=== PATIENT | female | born 1990 | race Caucasian/White ===

== ENCOUNTER 2021-04-26 09:54 | Emergency (ER) | payer OTHER, SELFPAY ==
--- NOTE | ~2021-04-26 | XR_ITS ---
EXAMINATION: XR chest 2V DATE: 04/26/2021 10:10 INDICATION: Centralized chest pain TECHNIQUE: PA and lateral views of the chest are obtained. COMPARISON: None available FINDINGS: The lungs are free of acute opacities. There is no pleural effusion or pneumothorax. The ca rdiomediastinal silhouette is normal. The visualized bones and soft tissues are unremarkable. IMPRESSION: 1. No acute cardiopulmonary abnormality. Reviewed, dictated and finalized at location A.
--- NOTE | ~2021-04-26 | CT_ITS ---
EXAMINATION: CT abdomen pelvis w con INDICATION: Leukocytosis TECHNIQUE: Computed tomographic images of the abdomen and pelvis were obtained after the administrati on of 100 cc of Omnipaque 350 intravenous contrast. The dose-length product (DLP) was 511.11 mGy-cm. Automated exposure control and iterative reconstruction technique were employed. COMPARISON: None available FINDINGS: Minimal dependent atelectasis is present in the lung bases. The heart size is normal. The l iver, spleen, pancreas, gallbladder, and adrenal glands are normal. There is a [address] one of the right kidney. The left kidney is unremarkable. There is moderate wall thickening in the tom dy and antrum of the stomach. No pathologically enlarged abdominal or pelvic lymph nodes are identifi ed. There is no free intraperitoneal gas or evidence of bowel obstruction. There is a fat-containing umbilical hernia. IMPRESSION: 1. Wall thickening in the body and the antrum of the stomach which may reflect gastritis. Reviewed, dictated and finalized at location A.
[2021-04-26 09:55] VITALS: BP 126/64; PULSE 95; RESP 18; TEMP 36.5; O2SAT 97
--- NOTE | 2021-04-26 09:59 | ECG_ITS ---
Measurements Intervals Nixon Rate: 60 P: 37 GA: 120 QRS: 61 QRSD: 88 T: 50 QT: 405 QTc: 408 Interpretive Statements SINUS RHYTHM WITH SINUS ARRHYTHMIA BASELINE ARTIFACT- I, II, AVR, AVL NORMAL ECG Electronically Signed On 04-26-2021 10:35:47 CDT by Soto Mg D.O.
[2021-04-26 10:33] LABS: Basophils Absolute Auto 0.1 K/mm3 (0.0-0.1); Basophils Percent Auto 0.8 % (0.2-1.2); Eosinophils Absolute Auto 0.4 K/mm3 (0-0.3); Eosinophils Percent Auto 2.2 % (0-4.4); Hematocrit 35.6 % (37.0-47.0); Hemoglobin 11.6 g/dL (12.0-15.0); Immature Granulocyte Absolute 0.06 K/mm3 (0.00-0.031); Immature Granulocyte Percent A 0.3 % (0-0.5); Lymphocytes Absolute Auto 3.46 K/mm3 (0.9-3.2); Lymphocytes Percent Auto 19.7 % (18.3-44.2); Mean Corpuscular HGB Conc 32.6 g/dl (32-36); Mean Corpuscular Hemoglobin 28.2 pg (26-34); Mean Corpuscular Volume 86.6 fl (80-100); Mean Platelet Volume 10.7 fl (7.4-10.4); Monocytes Absolute Auto 2.1 K/mm3 (0.1-0.6); Monocytes Percent Auto 11.9 % (2.6-8.5); Neutrophils Absolute Auto 11.5 K/mm3 (1.3-6.7); Neutrophils Percent Auto 65.1 % (45.5-73.1); Platelet Count Result 278 k/mm3 (150-375); Red Blood Count 4.11 M/mm3 (4.2-5.4); Red Cell Distribution Width 15.1 % (11.5-14.5); White Blood Count 17.6 K/mm3 (4.5-10.0)
[2021-04-26 10:45] LABS: Anion Gap 7 mmol/L (8-16); Blood Urea Nitrogen 9 mg/dL (7-17); Calcium 9.4 mg/dL (8.4-10.2); Carbon Dioxide 25 mmol/L (22-30); Chloride 110 mmol/L (98-107); Estimated CRCL calculation 108 ml/min; Estimated Glomerular Filt Rate > 60; Glucose 106 mg/dL (65-110); Potassium 3.8 mmol/L (3.4-5.0); Sodium 142 mmol/L (137-145)
[2021-04-26 10:52] LABS: Prothrombin Time 13.1 Seconds (11.1-14.7)
[2021-04-26 10:53] LABS: Partial Thromboplastin Time 30.9 SECONDS (22.3-36.8)
[2021-04-26 10:55] LABS: Troponin I < 0.012 ng/mL (0.000-0.034)
[2021-04-26] MEDS: ONDANSETRON INJ 4 MG/2 ML VIAL IV PUSH (12:00)
[2021-04-26] MEDS: BELLADONNA ALK/PHENOB ELIX 10 ML, MAG HYDROX/ALUMINUM HYD/SIMETH 30 ML, LIDOCAINE HCL 2... PO (12:00)
[2021-04-26] MEDS: SODIUM CHLORIDE 0.9% IV 1,000 ML 999 ML IV CONT (12:00)
[2021-04-26 12:03] LABS: Add Urine Microscopic? YES; Amorphous Sediment Urine Few; Appearance Urine Cloudy (Clear); Bacteria Urine Trace /hpf; Bilirubin Urine Negative (Negative); Blood Urine Negative (Negative); Color Urine Yellow (Yellow); Glucose Urine UA Negative (Negative); Ketones Urine Negative (Negative); Leukocyte Esterase Ur Negative LEU/UL (Negative); Mucus Urine Few /lpf; Nitrate Urine Negative (Negative); Protein Urine Negative (Negative); Specific Grav Ur 1.025 (1.001-1.035); Squamous Epithelial Cell Urine Few /hpf (Few); Urobilinogen Urine Negative mg/dL (<2.0); WBC Urine 0-3 /hpf
--- NOTE | 2021-04-26 12:05 | ED.CHESTPAIN ---
HPI - Chest Pain General Chief Complaint: Chest Pain Stated Complaint: chest pain Time Seen by Provider: 04/26/21 10:54 Source: patient Mode of arrival: ambulatory Limitations: no limitations History of Present Illness HPI narrative: Patient reports chest pain that radiates from her sternal area outward in every direction over the past few days. Patient states beginning she had body aches and cough. Patient states on Tuesday she had a few episodes of vomiting but has not had any since. Patient reports she feels a tightness and pain in her epigastric area and it feels as if she is full with gas. Patient states she also feels dehydrated. Patient reports she has not been able to eat and drink as much as usual. Related Data Allergies Allergy/AdvReac Type Severity Reaction Status Date / Time No Known Allergies Allergy Unverified 03/25/17 10:58 Review of Systems Review of Systems: CONSTITUTIONAL: Denies fever, chills, or sweats. EYES: Denies visual changes, redness, or discharge. ENT: Denies rhinorrhea, congestion, sore throat, or otalgia. CARDIOVASCULAR: Reports chest pain, denies palpitations or edema. RESPIRATORY: Reports cough denies dyspnea. GASTROINTESTINAL: Reports resolved nausea, vomiting, denies diarrhea. GENITOURINARY: Denies dysuria or hematuria. SKIN: Denies rash or itching. MUSCULOSKELETAL: Denies back pain, joint pain, or myalgia. NEUROLOGIC: Denies headache, numbness, dizziness, or weakness. PSYCHIATRIC: Denies anxiety or depression. Exam Narrative: GENERAL: Well-appearing, well-nourished, and in no acute distress. HEAD: Normocephalic, atraumatic. EYES: PERRLA and EOMI. CHEST: Clear to auscultation. No respiratory distress. No wheezes rales or rhonchi HEART: Regular rate and rhythm. No murmur heard. Normal peripheral pulses. ABDOMEN: Soft, pain with palpation of epigastric area, nondistended, normal active bowel sounds. EXTREMITIES: Normal range of motion. No edema. SKIN: Warm, dry, no rash. NEURO: No focal deficits. Alert and oriented x3. PSYCH: Normal mood and affect. Course Vital Signs Vital signs: Vital Signs Temperature 97.7 F 04/26/21 09:55 Pulse Rate 95 04/26/21 09:55 Respiratory Rate 04/26/21 09:55 Blood Pressure 126/64 04/26/21 09:55 Pulse Oximetry 97 04/26/21 09:55 Temperature 97.7 F 04/26/21 09:55 Pulse Rate 94 04/26/21 12:32 Respiratory Rate 17 04/26/21 12:32 Blood Pressure 121/59 L 04/26/21 12:32 Pulse Oximetry 100 04/26/21 12:32 MDM - Chest Pain MDM Narrative Medical decision making narrative: Patient has elevated white blood cell count. Patient reports that she has some vomiting patient does have pain at the epigastric area. Chest x-ray is clear and urinalysis is negative for signs of infection. CT shows inflammation of the stomach and stomach antrum. Patient will be placed on PPI and instructed to follow-up with primary care and GI specialist. Patient does not have any other emergent findings. Patient has been tested for Covid and has been instructed on how to obtain her information. Patient has been instructed to quarantine as if she is positive while awaiting testing results and while symptomatic. Patient does not have any signs of distress. Patient's vital signs are stable. She is hemodynamically stable and does not show any signs of respiratory distress or sepsis.. Differential Diagnosis Differential diagnosis: Likely fracture of rib, pneumothorax, stable angina, unstable angina pectoris, atypical chest pain, st elevation myocardial infarction, costochondritis, chest pain and biliary colic Lab Data Result diagrams: 04/26/21 10:24 04/26/21 10:24 Labs: Lab Results 04/26/21 04/26/21 04/26/21 Range/Units 10:24 10:24 10:24 WBC 17.6 H (4.5-10.0) K/mm3 RBC 4.11 L (4.2-5.4) M/mm3 Hgb 11.6 L (12.0-15.0) g/dL Hct 35.6 L (37.0-47.0) % MCV 86.6 (80-100) fl MCH 28.2 (26-34) pg
[2021-04-26 12:08] LABS: Lipase 72 U/L (23-300)
[2021-04-26 12:32] VITALS: BP 121/59; PULSE 94; RESP 17; O2SAT 100
[2021-04-26 12:48] LABS: Pregnancy On Board Control Positive; Urine Pregnancy Test Negative
[2021-04-26 13:08] LABS: Troponin I < 0.012 ng/mL (0.000-0.034)
[2021-04-26] MEDS: PANTOPRAZOLE SODIUM IV 40 MG VIAL IV PUSH (13:37)
[2021-04-27 19:01] LABS: SARS-CoV-2 RNA PCR Negative
== END 2021-04-26 14:47 | disposition home or self-care (01) ==
PROVIDERS: Physician Assistant; Emergency Provider Family Medicine; PCP Internal Medicine
DX: K29.70 Gastritis, unspecified, without bleeding (principal); B34.9 Viral infection, unspecified; Z20.822 Contact with and (suspected) exposure to COVID-19
CPT/HCPCS: 36415; 71046; 74177; 80048; 81001; 81025; 83690; 84484; 85025; 85610; 85730; 93005; 96361; 96374; 96375; 99284; A9270; C9113; C9803; J2405; J7030; Q9967; U0003; U0005

== ENCOUNTER 2024-08-31 04:46 | Emergency (ER) | payer SELFPAY ==
[2024-08-31] VITALS (16 sets, daily range): BP systolic 95–122; BP diastolic 62–91; PULSE 91–111; RESP 12–18; TEMP 36.4–37.3; O2SAT 95–100
--- NOTE | ~2024-08-31 | XR_ITS ---
Left ankle Technique: AP, oblique, and lateral views were obtained. Clinical History: Injury Findings: There is a transverse fracture the base the medial malleolus, with displacement by up to ap proximately 1.8 cm. There is a comminuted oblique fracture of the distal fibula, with lateral angulat ion of the distal fracture fragment and probable mild overriding. There is marked widening of the med ial aspect of the ankle mortise. Questionable posterior malleolus fracture. Soft tissues are otherwis e unremarkable. Impression: Displaced fractures of the medial and lateral malleoli, with significant widening of the medial aspec t of the ankle mortise, as detailed above. Questionable posterior malleolus fracture. Reviewed, dictated and finalized at location M. RVISOR TYPE BAR AND SEGMENT Impression: Displaced fractures of the medial and lateral malleoli, with significant wideni ng of the medial aspect of the ankle mortise, as detailed above. Questionable p osterior malleolus fracture.
--- NOTE | ~2024-08-31 | XR_ITS ---
EXAMINATION: XR ankle LT 2V DATE: 08/31/2024 08:58 INDICATION: Left ankle fracture status post reduction. TECHNIQUE: 2 views of left ankle were obtained. COMPARISON: Left hand radiographs at 458 AM FINDINGS: There is a comminuted fracture of distal fibula. The main distal fracture fragment demonstr ates near-anatomic alignment. There is an oblique fracture of medial malleolus with 2 mm distraction. There may be a fracture of posterior malleolus. Joint spaces are normal. There is ankle soft tissue swelling. IMPRESSION: 1. Comminuted fracture of distal fibula with improvement in alignment. 2. Oblique fracture medial malleolus with improvement in alignment. 3. Possible fracture of posterior malleolus. Reviewed, dictated and finalized at location B. N ROOM HOUSEPERSON
[2024-08-31] MEDS: HYDROmorphone HCL INJ (*CRX) 1 MG/ML SYR IM (05:44)
[2024-08-31] MEDS: HYDROmorphone HCL INJ (*CRX) 1 MG/ML SYR IV PUSH (08:12)
[2024-08-31] MEDS: ONDANSETRON INJ 4 MG/2 ML VIAL IV PUSH (08:12)
[2024-08-31] MEDS: PROPOFOL IV EMULSION 200 MG/20 ML VIAL 80 MG IV PUSH (09:09)
--- NOTE | 2024-08-31 09:10 | PC.NURSE ---
Provider at bedside and administered 60mg propofol at 0828. Patient ankle reduction complete at 0831. Splint placed on patient's ankle and provider approved. Patient fully awake at 0834
--- NOTE | 2024-08-31 09:51 | ED_ITS ---
HPI - Extremity Injury (Lower) General Chief Complaint: Extremity Injury, Lower Stated Complaint: L ankle FX Time Seen by Provider: 08/31/24 07:09 Source: patient Mode of arrival: EMS Limitations: no limitations History of Present Illness HPI Narrative: 33-year-old otherwise healthy here with the complaints of left ankle pain and swelling. Patient states that she fell on her porch earlier this morning. She denied any head or neck injuries. MD complaint: ankle injury Onset (ago): hour(s) (2) Type of Injury: unknown Place: home Severity: severe Relieving factors: immobilization Exacerbating factors: movement Context: fall Associated symptoms: snap/pop sensation, swelling and unable to bear weight Other symptoms: none Treatments prior to arrival: other (Splinting) Related Data Allergies Allergy/AdvReac Type Severity Reaction Status Date / Time No Known Allergies Allergy Unverified 03/25/17 10:58 Review of Systems Review of Systems: All systems reviewed & are unremarkable except as noted in HPI and below Constitutional: Constitutional: Reports no additional constitutional complaints Eyes: Eyes: Reports no additional eye complaints ENT: Reports system reviewed and no additional complaints, except as documented Cardiovascular: Cardiovascular: Reports no additional cardiovascular complaints Respiratory: Respiratory: Reports no additional respiratory complaints Gastrointestinal: Gastrointestinal: Reports no additional gastrointestinal complaints Musculoskeletal: Musculoskeletal: Reports no additional musculoskeletal complaints and Reports as per HPI Neurologic: Reports system reviewed and no additional complaints, except as documented Exam Narrative: GENERAL: Well-appearing, well-nourished, and in no acute distress. HEAD: Normocephalic, atraumatic. EYES: PERRLA and EOMI. ENT: Nares clear, no rhinorrhea or epistaxis. Mucous membranes moist. NECK: Supple. CHEST: Clear to auscultation. No respiratory distress. HEART: Regular rate and rhythm. No murmur heard. Normal peripheral pulses. ABDOMEN: Soft, nontender, nondistended, normal active bowel sounds. EXTREMITIES: Normal range of motion. No edema. Examination of the left ankle marked soft tissue swelling associated with deformity. Good distal pulses. SKIN: Warm, dry, no rash. NEURO: No focal deficits. Alert and oriented x3. PSYCH: Normal mood and affect. Course Course Emergency Course: Inform patient about the x-ray findings. Agreeable with moderate sedation to reduce the ankle. I did discuss with Dr. Mcclain recommended to follow-up in the office. Vital Signs Vital signs: Vital Signs Temperature 37.3 C 08/31/24 04:44 Pulse Rate 111 H 08/31/24 04:44 Respiratory Rate 18 08/31/24 04:44 Blood Pressure 122/91 H 08/31/24 04:44 Pulse Oximetry 99 08/31/24 04:44 Oxygen Delivery Room Air 08/31/24 04:44 Temperature 36.6 C 08/31/24 08:45 Pulse Rate 98 08/31/24 09:31 Respiratory Rate 12 08/31/24 09:31 Blood Pressure 103/67 08/31/24 09:31 Pulse Oximetry 99 08/31/24 09:31 Oxygen Delivery Room Air 08/31/24 08:45 Oxygen Flow Rate 2 08/31/24 08:30 Procedures Orthopedic Joint Reduction Joint #1: Orthopedic Joint Reduction Date: 08/31/24 Orthopedic Joint Reduction Time: 08:22 Joint Reduction Location: ankle (left) Analgesia: procedural sedation Pre-Procedure Neuro Vascular Exam: normal Technique used: traction/counter-traction Post-reduction neuro exam: intact and no change Post-reduction vascular: intact Post Reduction X-Ray Obtained: Yes Post Reduction X-Ray Results: reduced Splint Applied: Yes Patient Tolerated Procedure: well Procedural Sedation Procedural Sedation #1: Informed Consent Obtained: yes Equipment in Room: capnography Plan for Sedation: moderate sedation ASA Class: I NPO Status: last solid food (hours ago) (14) Explanation to Patient/Family: Risk/Benefits/Alternatives and Pt/Family agreed with plan Pt. Educated on Procedural Sedation: Yes Re-evaluated immediately prior: Yes Preparation: quality assurance monitor applied, pulse oximeter, capnometry used, supplemental O2 applied and reversal agents at bedside IV Propofol dose (mg): 60 Patient Tolerated Procedure: well Complications: none Discharge Plan Discharge Clinical Impression: Bimalleolar fracture of left ankle Patient Disposition: Home, Self-Care Condition: Stable Instructions: Ankle Fracture (DC), Moderate Sedation (ED) Additional Instructions: Keep your leg elevated, call the orthopedic doctor's office today for an appointment. Take pain medication as prescribed. Recommended no alcohol while you are on the medication. Patient Language: Yakut Prescriptions: New hydrocodone-acetaminophen 5-325 mg tablet 1 tablet PO Q8H PRN (Reason: pain) Qty: 20 0RF No Action omeprazole 20 mg capsule,delayed release(DR/EC) 20 mg PO DAILY Qty: 10 0RF benzonatate [Tessalon Perles] 100 mg capsule 100 mg PO TID PRN (Reason: cough) Qty: 20 0RF Follow-up/Referrals: Anselmo Mcclain MD [Physician] - Grover,Kavon Young MD [Primary Care Provider] - Time of Disposition: 09:54
[2024-08-31] MEDS: HYDROcodone/acetaminophen (*CRX) 5-325 MG TABLET 1 TAB PO (11:07)
[2024-08-31] MEDS: KETOROLAC 30 MG/ML VIAL (*BKC) IV PUSH (11:07)
== END 2024-08-31 11:27 | disposition home or self-care (01) ==
PROVIDERS: Emergency Provider Family Medicine; PCP Internal Medicine
DX: S82.842A Displaced bimalleolar fracture of left lower leg, initial encounter for closed fracture (principal); W18.30XA Fall on same level, unspecified, initial encounter
CPT/HCPCS: 27810; 73600; 73610; 96372; 96374; 96375; 99285; A9270; J1171; J1885; J2405; J2704; J7030

== ENCOUNTER 2024-09-04 14:40 | Observation (INO) | payer SELFPAY ==
[2024-09-03 10:20] VITALS: BMI 30.2
--- NOTE | 2024-09-03 10:31 | PC.NURSE ---
Report to the Outpatient Waiting Room, entrance under the green pavilion located off [facility], at time _1100_ on date _[id number]_. Planned Procedure Time: _1pm_.? Time changes happen often and if your time is changed the preop area will call you the afternoon before. - You and your visitor will be asked to self-screen and do not enter if you have any COVID symptoms. Please call surgeon if you need to reschedule. - A mask is optional within the hospital at this time. Patients may have clear liquids (water, carbonated beverages, clear teas, apple juice) until 3 hours prior to surgery with a maximum of 20 ounces. - No food from midnight until time of surgery and no smoking. This includes no chewing gum, candy or mints. Take only the following medications with a SIP of water on the morning of surgery: __Citalopram and if needed Hydrocodone DO NOT STOP ANY OF YOUR OTHER PRESCRIPTION MEDICATIONS PRIOR TO SURGERY EXCEPT THE FOLLOWING Please no make-up, nail wolof, hairspray, perfume, deodorant, or body powder the day of surgery.? No jewelry (including any body piercings) or valuables the day of surgery, leave them at home.? Please take a shower or bath the night before, or the morning of, surgery with an antibacterial soap.? Wear comfortable, loose fitting clothing.? - Jewelry must be removed prior to entering the operating room.? Rings and piercings that are not removed may be cut off. - The hospital will not accept responsibility for valuables.? - Please leave all valuables, including medications, at home the day of surgery. If you are going home after surgery, a licensed catering driver must drive you home.? - NO public transportation without another adult if you receive anesthesia. - We recommend that an adult stay with you for 24 hours following discharge. - We also recommend that you do not drive, make important decision, drink alcoholic beverages, or take any drugs that were not prescribed by your health care provider for at least 24 hours after your discharge time. Hold all vitamins and supplements for _3_ days per __Anesthesia___. Follow any additional instructions given to you from your surgeon. Telephone instructions given to _Roxane_and asked if any additional questions and then verbalized understanding. Patient advised to call surgeon office or pre surgery nurse liaison [phone] if any additional questions.
--- NOTE | ~2024-09-04 | XR_ITS ---
EXAMINATION: XR foot RT min 3V DATE: 09/04/2024 16:40 INDICATION: Right foot pain. TECHNIQUE: 4 views of right foot were obtained. COMPARISON: None. FINDINGS: Alignment is normal. No fracture. Joint spaces are normal. IMPRESSION: 1. Normal right foot. Reviewed, dictated and finalized at location A. INE MOLDER IMPRESSION: 1. Normal right foot.
--- NOTE | ~2024-09-04 | XR_ITS ---
CORRECTED REPORT moved report and images to [id number] from [id number] [facility] 09/06/24 This report was recreated on 09/06/24. Original report was NG TESTER EXAMINATION: XR surgery orthopedic DATE: 09/05/2024 12:00 CASING TESTER INDICATION: ORIF LEFT ANKLE . TECHNIQUE: 8 fluoroscopic images of the left ankle were obtained during left ankle ORIF, performed by Luther Albrecht MD. I was not present during the procedure. Fluoroscopy exposure time was 17.4 seconds. Air Kerma 0.85 mGy. DAP 0.38429 mGym2. COMPARISON: None FINDINGS/IMPRESSION: Fluoroscopic documentation of left ankle ORIF. Please refer to the operative note for complete procedural details . Reviewed, dictated and finalized at location K. NG TESTER [facility]
--- NOTE | ~2024-09-04 | XR_ITS ---
EXAMINATION: XR ankle RT 2V DATE: 09/04/2024 16:40 INDICATION: Right ankle pain. TECHNIQUE: 2 views of right ankle were obtained. COMPARISON: None. FINDINGS: Alignment is normal. No fracture. Joint spaces are normal. There is ankle soft tissue swell ing. IMPRESSION: 1. No fracture. Reviewed, dictated and finalized at location A. DEPOSIT CLERK IMPRESSION: 1. No fracture.
[2024-09-04 15:15] VITALS: BP 123/73; PULSE 110; RESP 20; TEMP 37.2; O2SAT 100
--- OUTSIDE RECORDS SUMMARY | 2024-09-04 15:15 | XMS_ITS | Patient Health Summary ---
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 extra-axial hemorrhage or an intraparenchymal hemorrhagic contusion. This causes mild local mass effect but no midline shift. The munoz-white matter differentiation is otherwise normal. There is also a thin left cerebral convexity acute extra-axial collection located directly under a left temporal bone fracture which will be described below. There is a tiny focus of pneumocephalus posterior to a right sphenoid sinus fracture which will be described below. The ventricles are nondilated without evidence of intraventricular hemorrhage. The basilar cisterns are patent. Left frontal and parietal scalp lacerations are seen. A small amount of gas is seen in the left frontoparietal scalp. Maxillofacial: A 5 mm radiodensity medial to the left globe likely represents a foreign body. Smaller punctate radiodensities in the left supraorbital soft tissues adjacent to a soft tissue defect likely represent foreign bodies. The orbits otherwise appear normal. A fracture line extends from the left aspect of the basisphenoid to the lateral wall of the right sphenoid sinus (best seen on series 3, image 134) with resultant hemorrhage in the sphenoid sinuses. The carotid canals do not appear involved. The hard palate, mandible, and temporomandibular joints appear normal. Temporal bones: On the right side, the external auditory canal and auricle appear normal. ??The mastoid air cells and the middle ear cavity including the middle ear ossicles appear normal. The bony labyrinth, internal auditory canal, and petrous apex appear normal. The carotid canal, jugular bulb, and course of the facial nerve appear normal. On the left side, the external auditory canal and auricle appear normal. ??There is a longitudinally oriented left temporal bone fracture extending from the outer cortex of the mastoid through the roof and anterior wall of the bony external auditory canal with associated gas and fluid in the mastoid air cells. The stapes is poorly visualized due to fluid in the middle ear cavity, but the ossicular chain appears intact. There is disruption of the tegmen mastoideum as well as the tegmen tympani by the fracture. The carotid canal appears intact. The bony labyrinth and internal auditory canal appear normal. The jugular bulb and course of the facial nerve appear normal. A small amount of pneumocephalus as well as soft tissue gas is seen adjacent to the fracture. Angiographic findings: The distal internal carotid arteries appear normal. The anterior and middle cerebral arteries appear normal. The distal vertebral arteries appear normal. The basilar artery and posterior cerebral arteries appear normal. No evidence of vascular injury is identified. Cervical spine: The alignment is normal. Vertebral bodies are normal in height without evidence of acute fracture. The craniocervical junction is normal. The intervertebral discs appear normal. No central canal stenosis is seen. The facets appear normal. The uncovertebral joints appear normal. No neural foraminal stenosis is seen. No soft tissue abnormality is identified. Thoracic spine: Other than mild thoracic dextrocurvature, alignment is normal. Vertebral bodies are normal in height without evidence of acute fracture. The intervertebral discs appear normal. No central canal stenosis is seen. The facets appear normal. No neural foraminal stenosis is seen. No soft tissue abnormality is identified. Lumbar spine: The alignment is normal. Vertebral bodies are normal in height without evidence of acute fracture. The intervertebral discs appear normal. No central canal stenosis is seen. The facets appear normal. No neural foraminal stenosis is seen. A bladder catheter is partially imaged and there is a physiologic amount of free fluid in the pouch of Rigoberto. Procedure Note Ruth Marcus MD - 11/06/2017 EXAMINATION: 1. Computed tomography (CT) of the head without contrast 2. CT of the maxillofacial bones, orbits, and paranasal sinuses withoutcontrast 3. CT of the temporal bones without contrast 4. CT angiogram of the head with contrast 5. CT of the cervical spine without contrast 6. CT of the thoracic spine without contrast 7. CT of the lumbar spine without contrast HISTORY: Intracranial hemorrhage basilar skull fracture after injury TECHNIQUE: CT of the head, cervical spine, and maxillofacial bones,orbits, and paranasal sinuses was performed without contrast according tostandard protocol. CT of the temporal bones was performed without contrastaccording to standard protocol. CT angiography of the head was obtained after the uneventful administrationof 100 mL of Omnipaque 350 intravenous contrast. Three dimensionalpostprocessing was performed by the technologist and sent to theworkstation for review. Reformatted axial, sagittal, and coronal images of the thoracic and lumbar spine wereobtained by the technologist from a concurrently performed body CT andsent to the workstation for review. FINDINGS: No prior study is available for comparison. Head: There is small volume subarachnoid hemorrhage along the right cerebralconvexity. A thin right cerebral convexity subdural hematoma measures 4 mmin maximal thickness. There is a1.7 x 1.3 cm collection of blood productsin the region of the anterior right temporal lobe which may represent loculated extra-axial hemorrhageor an intraparenchymal hemorrhagic contusion. This causes mild local masseffect but no midline shift. The munoz-white matter differentiation isotherwise normal. There is also a thin left cerebral convexity acute extra-axial collection located directlyunder a left temporal bone fracture which will be described below. Thereis a tiny focus of pneumocephalus posterior to a right sphenoid sinusfracture which will be described below. The ventricles are nondilated without evidence of intraventricularhemorrhage. The basilar cisterns are patent. Left frontal and parietalscalp lacerations are seen. A small amount of gas is seen in the leftfrontoparietal scalp. Maxillofacial: A 5 mm radiodensity medial to the left globe likely represents a foreignbody. Smaller punctate radiodensities in the left supraorbital softtissues adjacent to a soft tissue defect likely represent foreign bodies.The orbits otherwise appear normal. A fracture line extends from the left aspect of the basisphenoid to thelateral wall of the right sphenoid sinus (best seen on series 3, ) with resultant hemorrhage in the sphenoid sinuses. The carotid canalsdo not appear involved. The hard palate, mandible, and temporomandibular joints appear normal. Temporal bones: On the right side, the external auditory canal and auricle appear normal.The mastoid air cells and the middle ear cavity including the middle earossicles appear normal. The bony labyrinth, internal auditory canal, andpetrous apex appear normal. The carotid canal, jugular bulb, and course of the facial nerve appearnormal. On the left side, the external auditory canal and auricle appear normal.There is a longitudinally oriented left temporal bone fracture extendingfrom the outer cortex of the mastoid through the roof and anterior wall ofthe bony external auditory canal with associated gas and fluid in the mastoid air cells. The stapes ispoorly visualized due to fluid in the middle ear cavity, but the ossicularchain appears intact. There is disruption of the tegmen mastoideum as wellas the tegmen tympani by the fracture. The carotid canal appears intact. The bony labyrinth andinternal auditory canal appear normal. The jugular bulb and course of thefacial nerve appear normal. A small amount of pneumocephalus as well assoft tissue gas is seen adjacent to the fracture. Angiographic findings: The distal internal carotid arteries appear normal. The anterior andmiddle cerebral arteries appear normal. The distal vertebral arteriesappear normal. The basilar artery and posterior cerebral arteries appearnormal. No evidence of vascular injury is identified. Cervical spine: The alignment is normal. Vertebral bodies are normal in height withoutevidence of acute fracture. The craniocervical junction is normal. Theintervertebral discs appear normal. No central canal stenosis is seen. Thefacets appear normal. The uncovertebral joints appear normal. No neural foraminal stenosis is seen.No soft tissue abnormality is identified. Thoracic spine: Other than mild thoracic dextrocurvature, alignment is normal. Vertebralbodies are normal in height without evidence of acute fracture. Theintervertebral discs appear normal. No central canal stenosis is seen. Thefacets appear normal. No neural foraminal stenosis is seen. No soft tissue abnormality is identified. Lumbar spine: The alignment is normal. Vertebral bodies are normal in height withoutevidence of acute fracture. The intervertebral discs appear normal. Nocentral canal stenosis is seen. The facets appear normal. No neuralforaminal stenosis is seen. A bladder catheter is partially imaged and there is a physiologic amount of freefluid in the pouch of Rigoberto. IMPRESSION IMPRESSION: 1. Small-volume right subarachnoid and subdural hemorrhage as well as asmall collection of blood along the right temporal lobe which may beextra-axial or represent a hemorrhagic contusion. 2. Longitudinal left temporal bone fracture with disruption of the tegmenmastoideum and tegmen tympani. The ossicular chain appears intact althoughthe stapes is poorly visualized due to hemotympanum. 3. Nondisplaced fracture of the left basisphenoid extending to the lateralwall of the right sphenoid sinus. 4. No evidence of vascular injury in the intracranial vasculature. 5. No evidence of acute fracture in the cervical, thoracic, or lumbarspine. Findings were discussed with Dr. Gordon of neurosurgery by Dr. Alexandra at5:21 AM on 01/22/2013. This report was approved by Saima Shields M.D. on 01/22/2013 11:01 AM . I, Dr. RUTH MARCUS M.D. have personally reviewed and interpreted thisexamination/study. This report was electronically signed by RUTH MARCUS M.D. on 01/22/201311:15 AM . Historical Provider MD CT ORDERABLES * CT LUMBAR SPINE WO CONTRAST (01/22/2013 4:38 AM CDT) Anatomical Region Laterality Modality Spine Other Impressions 01/22/2013 11:15 AM CDT IMPRESSION: 1. Small-volume right subarachnoid and subdural hemorrhage as well as a small collection of blood along the right temporal lobe which may be extra-axial or represent a hemorrhagic contusion. 2. Longitudinal left temporal bone fracture with disruption of the tegmen mastoideum and tegmen tympani. The ossicular chain appears intact although the stapes is poorly visualized due to hemotympanum. 3. Nondisplaced fracture of the left basisphenoid extending to the lateral wall of the right sphenoid sinus. 4. No evidence of vascular injury in the intracranial vasculature. 5. No evidence of acute fracture in the cervical, thoracic, or lumbar spine. Findings were discussed with Dr. Gordon of neurosurgery by Dr. Alexandra at 5:21 AM on 01/22/2013. This report was approved ??by Saima Shields M.D. ?? on 01/22/2013 11:01 AM . I, Dr. RUTH MARCUS M.D. have personally reviewed and interpreted this examination/study. This report was electronically signed by RUTH MARCUS M.D. ??on 01/22/2013 11:15 AM . Narrative 01/22/2013 11:15 AM CDT EXAMINATION: 1. Computed tomography (CT) of the head without contrast 2. CT of the maxillofacial bones, orbits, and paranasal sinuses without contrast 3. CT of the temporal bones without contrast 4. CT angiogram of the head with contrast 5. CT of the cervical spine without contrast 6. CT of the thoracic spine without contrast 7. CT of the lumbar spine without contrast HISTORY: Intracranial hemorrhage basilar skull fracture after injury TECHNIQUE: CT of the head, cervical spine, and maxillofacial bones, orbits, and paranasal sinuses was performed without contrast according to standard protocol. CT of the temporal bones was performed without contrast according to standard protocol. CT angiography of the head was obtained after the uneventful administration of 100 mL of Omnipaque 350 intravenous contrast. Three dimensional postprocessing was performed by the technologist and sent to the workstation for review. Reformatted axial, sagittal, and coronal images of the thoracic and lumbar spine were obtained by the technologist from a concurrently performed body CT and sent to the workstation for review. FINDINGS: No prior study is available for comparison. Head: There is small volume subarachnoid hemorrhage along the right cerebral convexity. A thin right cerebral convexity subdural hematoma measures 4 mm in maximal thickness. There is a1.7 x 1.3 cm collection of blood products in the region of the anterior right temporal lobe which may represent loculated extra-axial hemorrhage or an intraparenchymal hemorrhagic contusion. This causes mild local mass effect but no midline shift. The munoz-white matter differentiation is otherwise normal. There is also a thin left cerebral convexity acute extra-axial collection located directly under a left temporal bone fracture which will be described below. There is a tiny focus of pneumocephalus posterior to a right sphenoid sinus fracture which will be described below. The ventricles are nondilated without evidence of intraventricular hemorrhage. The basilar cisterns are patent. Left frontal and parietal scalp lacerations are seen. A small amount of gas is seen in the left frontoparietal scalp. Maxillofacial: A 5 mm radiodensity medial to the left globe likely represents a foreign body. Smaller punctate radiodensities in the left supraorbital soft tissues adjacent to a soft tissue defect likely represent foreign bodies. The orbits otherwise appear normal. A fracture line extends from the left aspect of the basisphenoid to the lateral wall of the right sphenoid sinus (best seen on series 3, image 134) with resultant hemorrhage in the sphenoid sinuses. The carotid canals do not appear involved. The hard palate, mandible, and temporomandibular joints appear normal. Temporal bones: On the right side, the external auditory canal and auricle appear normal. ??The mastoid air cells and the middle ear cavity including the middle ear ossicles appear normal. The bony labyrinth, internal auditory canal, and petrous apex appear normal. The carotid canal, jugular bulb, and course of the facial nerve appear normal. On the left side, the external auditory canal and auricle appear normal. ??There is a longitudinally oriented left temporal bone fracture extending from the outer cortex of the mastoid through the roof and anterior wall of the bony external auditory canal with associated gas and fluid in the mastoid air cells. The stapes is poorly visualized due to fluid in the middle ear cavity, but the ossicular chain appears intact. There is disruption of the tegmen mastoideum as well as the tegmen tympani by the fracture. The carotid canal appears intact. The bony labyrinth and internal auditory canal appear normal. The jugular bulb and course of the facial nerve appear normal. A small amount of pneumocephalus as well as soft tissue gas is seen adjacent to the fracture. Angiographic findings: The distal internal carotid arteries appear normal. The anterior and middle cerebral arteries appear normal. The distal vertebral arteries appear normal. The basilar artery and posterior cerebral arteries appear normal. No evidence of vascular injury is identified. Cervical spine: The alignment is normal. Vertebral bodies are normal in height without evidence of acute fracture. The craniocervical junction is normal. The intervertebral discs appear normal. No central canal stenosis is seen. The facets appear normal. The uncovertebral joints appear normal. No neural foraminal stenosis is seen. No soft tissue abnormality is identified. Thoracic spine: Other than mild thoracic dextrocurvature, alignment is normal. Vertebral bodies are normal in height without evidence of acute fracture. The intervertebral discs appear normal. No central canal stenosis is seen. The facets appear normal. No neural foraminal stenosis is seen. No soft tissue abnormality is identified. Lumbar spine: The alignment is normal. Vertebral bodies are normal in height without evidence of acute fracture. The intervertebral discs appear normal. No central canal stenosis is seen. The facets appear normal. No neural foraminal stenosis is seen. A bladder catheter is partially imaged and there is a physiologic amount of free fluid in the pouch of Rigoberto. Procedure Note Ruth Marcus MD - 11/06/2017 EXAMINATION: 1. Computed tomography (CT) of the head without contrast 2. CT of the maxillofacial bones, orbits, and paranasal sinuses withoutcontrast 3. CT of the temporal bones without contrast 4. CT angiogram of the head with contrast 5. CT of the cervical spine without contrast 6. CT of the thoracic spine without contrast 7. CT of the lumbar spine without contrast HISTORY: Intracranial hemorrhage basilar skull fracture after injury TECHNIQUE: CT of the head, cervical spine, and maxillofacial bones,orbits, and paranasal sinuses was performed without contrast according tostandard protocol. CT of the temporal bones was performed without contrastaccording to standard protocol. CT angiography of the head was obtained after the uneventful administrationof 100 mL of Omnipaque 350 intravenous contrast. Three dimensionalpostprocessing was performed by the technologist and sent to theworkstation for review. Reformatted axial, sagittal, and coronal images of the thoracic and lumbar spine wereobtained by the technologist from a concurrently performed body CT andsent to the workstation for review. FINDINGS: No prior study is available for comparison. Head: There is small volume subarachnoid hemorrhage along the right cerebralconvexity. A thin right cerebral convexity subdural hematoma measures 4 mmin maximal thickness. There is a1.7 x 1.3 cm collection of blood productsin the region of the anterior right temporal lobe which may represent loculated extra-axial hemorrhageor an intraparenchymal hemorrhagic contusion. This causes mild local masseffect but no midline shift. The munoz-white matter differentiation isotherwise normal. There is also a thin left cerebral convexity acute extra-axial collection located directlyunder a left temporal bone fracture which will be described below. Thereis a tiny focus of pneumocephalus posterior to a right sphenoid sinusfracture which will be described below. The ventricles are nondilated without evidence of intraventricularhemorrhage. The basilar cisterns are patent. Left frontal and parietalscalp lacerations are seen. A small amount of gas is seen in the leftfrontoparietal scalp. Maxillofacial: A 5 mm radiodensity medial to the left globe likely represents a foreignbody. Smaller punctate radiodensities in the left supraorbital softtissues adjacent to a soft tissue defect likely represent foreign bodies.The orbits otherwise appear normal. A fracture line extends from the left aspect of the basisphenoid to thelateral wall of the right sphenoid sinus (best seen on series 3, [id number]) with resultant hemorrhage in the sphenoid sinuses. The carotid canalsdo not appear involved. The hard palate, mandible, and temporomandibular joints appear normal. Temporal bones: On the right side, the external auditory canal and auricle appear normal.The mastoid air cells and the middle ear cavity including the middle earossicles appear normal. The bony labyrinth, internal auditory canal, andpetrous apex appear normal. The carotid canal, jugular bulb, and course of the facial nerve appearnormal. On the left side, the external auditory canal and auricle appear normal.There is a longitudinally oriented left temporal bone fracture extendingfrom the outer cortex of the mastoid through the roof and anterior wall ofthe bony external auditory canal with associated gas and fluid in the mastoid air cells. The stapes ispoorly visualized due to fluid in the middle ear cavity, but the ossicularchain appears intact. There is disruption of the tegmen mastoideum as wellas the tegmen tympani by the fracture. The carotid canal appears intact. The bony labyrinth andinternal auditory canal appear normal. The jugular bulb and course of thefacial nerve appear normal. A small amount of pneumocephalus as well assoft tissue gas is seen adjacent to the fracture. Angiographic findings: The distal internal carotid arteries appear normal. The anterior andmiddle cerebral arteries appear normal. The distal vertebral arteriesappear normal. The basilar artery and posterior cerebral arteries appearnormal. No evidence of vascular injury is identified. Cervical spine: The alignment is normal. Vertebral bodies are normal in height withoutevidence of acute fracture. The craniocervical junction is normal. Theintervertebral discs appear normal. No central canal stenosis is seen. Thefacets appear normal. The uncovertebral joints appear normal. No neural foraminal stenosis is seen.No soft tissue abnormality is identified. Thoracic spine: Other than mild thoracic dextrocurvature, alignment is normal. Vertebralbodies are normal in height without evidence of acute fracture. Theintervertebral discs appear normal. No central canal stenosis is seen. Thefacets appear normal. No neural foraminal stenosis is seen. No soft tissue abnormality is identified. Lumbar spine: The alignment is normal. Vertebral bodies are normal in height withoutevidence of acute fracture. The intervertebral discs appear normal. Nocentral canal stenosis is seen. The facets appear normal. No neuralforaminal stenosis is seen. A bladder catheter is partially imaged and there is a physiologic amount of freefluid in the pouch of Rigoberto. IMPRESSION IMPRESSION: 1. Small-volume right subarachnoid and subdural hemorrhage as well as asmall collection of blood along the right temporal lobe which may beextra-axial or represent a hemorrhagic contusion. 2. Longitudinal left temporal bone fracture with disruption of the tegmenmastoideum and tegmen tympani. The ossicular chain appears intact althoughthe stapes is poorly visualized due to hemotympanum. 3. Nondisplaced fracture of the left basisphenoid extending to the lateralwall of the right sphenoid sinus. 4. No evidence of vascular injury in the intracranial vasculature. 5. No evidence of acute fracture in the cervical, thoracic, or lumbarspine. Findings were discussed with Dr. Gordon of neurosurgery by Dr. Alexandra at5:21 AM on 01/22/2013. This report was approved by Saima Shields M.D. on 01/22/2013 11:01 AM . I, Dr. RUTH MARCUS M.D. have personally reviewed and interpreted thisexamination/study. This report was electronically signed by RUTH MARCUS M.D. on 01/22/201311:15 AM . Historical Provider CT ORDERABLES * CT THORACIC SPINE WO CONTRAST (01/22/2013 4:38 AM CDT) Anatomical Region Laterality Modality Spine Other Impressions 01/22/2013 11:15 AM CDT IMPRESSION: 1. Small-volume right subarachnoid and subdural hemorrhage as well as a small collection of blood along the right temporal lobe which may be extra-axial or represent a hemorrhagic contusion. 2. Longitudinal left temporal bone fracture with disruption of the tegmen mastoideum and tegmen tympani. The ossicular chain appears intact although the stapes is poorly visualized due to hemotympanum. 3. Nondisplaced fracture of the left basisphenoid extending to the lateral wall of the right sphenoid sinus. 4. No evidence of vascular injury in the intracranial vasculature. 5. No evidence of acute fracture in the cervical, thoracic, or lumbar spine. Findings were discussed with Dr. Gordon of neurosurgery by Dr. Alexandra at 5:21 AM on 01/22/2013. This report was approved ??by Saima Shields M.D. ?? on 01/22/2013 11:01 AM . I, Dr. RUTH MARCUS M.D. have personally reviewed and interpreted this examination/study. This report was electronically signed by RUTH MARCUS M.D. ??on 01/22/2013 11:15 AM . Narrative 01/22/2013 11:15 AM CDT EXAMINATION: 1. Computed tomography (CT) of the head without contrast 2. CT of the maxillofacial bones, orbits, and paranasal sinuses without contrast 3. CT of the temporal bones without contrast 4. CT angiogram of the head with contrast 5. CT of the cervical spine without contrast 6. CT of the thoracic spine without contrast 7. CT of the lumbar spine without contrast HISTORY: Intracranial hemorrhage basilar skull fracture after injury TECHNIQUE: CT of the head, cervical spine, and maxillofacial bones, orbits, and paranasal sinuses was performed without contrast according to standard protocol. CT of the temporal bones was performed without contrast according to standard protocol. CT angiography of the head was obtained after the uneventful administration of 100 mL of Omnipaque 350 intravenous contrast. Three dimensional postprocessing was performed by the technologist and sent to the workstation for review. Reformatted axial, sagittal, and coronal images of the thoracic and lumbar spine were obtained by the technologist from a concurrently performed body CT and sent to the workstation for review. FINDINGS: No prior study is available for comparison. Head: There is small volume subarachnoid hemorrhage along the right cerebral convexity. A thin right cerebral convexity subdural hematoma measures 4 mm in maximal thickness. There is a1.7 x 1.3 cm collection of blood products in the region of the anterior right temporal lobe which may represent loculated extra-axial hemorrhage or an intraparenchymal hemorrhagic contusion. This causes mild local mass effect but no midline shift. The munoz-white matter differentiation is otherwise normal. There is also a thin left cerebral convexity acute extra-axial collection located directly under a left temporal bone fracture which will be described below. There is a tiny focus of pneumocephalus posterior to a right sphenoid sinus fracture which will be described below. The ventricles are nondilated without evidence of intraventricular hemorrhage. The basilar cisterns are patent. Left frontal and parietal scalp lacerations are seen. A small amount of gas is seen in the left frontoparietal scalp. Maxillofacial: A 5 mm radiodensity medial to the left globe likely represents a foreign body. Smaller punctate radiodensities in the left supraorbital soft tissues adjacent to a soft tissue defect likely represent foreign bodies. The orbits otherwise appear normal. A fracture line extends from the left aspect of the basisphenoid to the lateral wall of the right sphenoid sinus (best seen on series 3, image 134) with resultant hemorrhage in the sphenoid sinuses. The carotid canals do not appear involved. The hard palate, mandible, and temporomandibular joints appear normal. Temporal bones: On the right side, the external auditory canal and auricle appear normal. ??The mastoid air cells and the middle ear cavity including the middle ear ossicles appear normal. The bony labyrinth, internal auditory canal, and petrous apex appear normal. The carotid canal, jugular bulb, and course of the facial nerve appear normal. On the left side, the external auditory canal and auricle appear normal. ??There is a longitudinally oriented left temporal bone fracture extending from the outer cortex of the mastoid through the roof and anterior wall of the bony external auditory canal with associated gas and fluid in the mastoid air cells. The stapes is poorly visualized due to fluid in the middle ear cavity, but the ossicular chain appears intact. There is disruption of the tegmen mastoideum as well as the tegmen tympani by the fracture. The carotid canal appears intact. The bony labyrinth and internal auditory canal appear normal. The jugular bulb and course of the facial nerve appear normal. A small amount of pneumocephalus as well as soft tissue gas is seen adjacent to the fracture. Angiographic findings: The distal internal carotid arteries appear normal. The anterior and middle cerebral arteries appear normal. The distal vertebral arteries appear normal. The basilar artery and posterior cerebral arteries appear normal. No evidence of vascular injury is identified. Cervical spine: The alignment is normal. Vertebral bodies are normal in height without evidence of acute fracture. The craniocervical junction is normal. The intervertebral discs appear normal. No central canal stenosis is seen. The facets appear normal. The uncovertebral joints appear normal. No neural foraminal stenosis is seen. No soft tissue abnormality is identified. Thoracic spine: Other than mild thoracic dextrocurvature, alignment is normal. Vertebral bodies are normal in height without evidence of acute fracture. The intervertebral discs appear normal. No central canal stenosis is seen. The facets appear normal. No neural foraminal stenosis is seen. No soft tissue abnormality is identified. Lumbar spine: The alignment is normal. Vertebral bodies are normal in height without evidence of acute fracture. The intervertebral discs appear normal. No central canal stenosis is seen. The facets appear normal. No neural foraminal stenosis is seen. A bladder catheter is partially imaged and there is a physiologic amount of free fluid in the pouch of Rigoberto. Procedure Note Ruth Marcus MD - 11/06/2017 EXAMINATION: 1. Computed tomography (CT) of the head without contrast 2. CT of the maxillofacial bones, orbits, and paranasal sinuses withoutcontrast 3. CT of the temporal bones without contrast 4. CT angiogram of the head with contrast 5. CT of the cervical spine without contrast 6. CT of the thoracic spine without contrast 7. CT of the lumbar spine without contrast HISTORY: Intracranial hemorrhage basilar skull fracture after injury TECHNIQUE: CT of the head, cervical spine, and maxillofacial bones,orbits, and paranasal sinuses was performed without contrast according tostandard protocol. CT of the temporal bones was performed without contrastaccording to standard protocol. CT angiography of the head was obtained after the uneventful administrationof 100 mL of Omnipaque 350 intravenous contrast. Three dimensionalpostprocessing was performed by the technologist and sent to theworkstation for review. Reformatted axial, sagittal, and coronal images of the thoracic and lumbar spine wereobtained by the technologist from a concurrently performed body CT andsent to the workstation for review. FINDINGS: No prior study is available for comparison. Head: There is small volume subarachnoid hemorrhage along the right cerebralconvexity. A thin right cerebral convexity subdural hematoma measures 4 mmin maximal thickness. There is a1.7 x 1.3 cm collection of blood productsin the region of the anterior right temporal lobe which may represent loculated extra-axial hemorrhageor an intraparenchymal hemorrhagic contusion. This causes mild local masseffect but no midline shift. The munoz-white matter differentiation isotherwise normal. There is also a thin left cerebral convexity acute extra-axial collection located directlyunder a left temporal bone fracture which will be described below. Thereis a tiny focus of pneumocephalus posterior to a right sphenoid sinusfracture which will be described below. The ventricles are nondilated without evidence of intraventricularhemorrhage. The basilar cisterns are patent. Left frontal and parietalscalp lacerations are seen. A small amount of gas is seen in the leftfrontoparietal scalp. Maxillofacial: A 5 mm radiodensity medial to the left globe likely represents a foreignbody. Smaller punctate radiodensities in the left supraorbital softtissues adjacent to a soft tissue defect likely represent foreign bodies.The orbits otherwise appear normal. A fracture line extends from the left aspect of the basisphenoid to thelateral wall of the right sphenoid sinus (best seen on series 3, ) with resultant hemorrhage in the sphenoid sinuses. The carotid canalsdo not appear involved. The hard palate, mandible, and temporomandibular joints appear normal. Temporal bones: On the right side, the external auditory canal and auricle appear normal.The mastoid air cells and the middle ear cavity including the middle earossicles appear normal. The bony labyrinth, internal auditory canal, andpetrous apex appear normal. The carotid canal, jugular bulb, and course of the facial nerve appearnormal. On the left side, the external auditory canal and auricle appear normal.There is a longitudinally oriented left temporal bone fracture extendingfrom the outer cortex of the mastoid through the roof and anterior wall ofthe bony external auditory canal with associated gas and fluid in the mastoid air cells. The stapes ispoorly visualized due to fluid in the middle ear cavity, but the ossicularchain appears intact. There is disruption of the tegmen mastoideum as wellas the tegmen tympani by the fracture. The carotid canal appears intact. The bony labyrinth andinternal auditory canal appear normal. The jugular bulb and course of thefacial nerve appear normal. A small amount of pneumocephalus as well assoft tissue gas is seen adjacent to the fracture. Angiographic findings: The distal internal carotid arteries appear normal. The anterior andmiddle cerebral arteries appear normal. The distal vertebral arteriesappear normal. The basilar artery and posterior cerebral arteries appearnormal. No evidence of vascular injury is identified. Cervical spine: The alignment is normal. Vertebral bodies are normal in height withoutevidence of acute fracture. The craniocervical junction is normal. Theintervertebral discs appear normal. No central canal stenosis is seen. Thefacets appear normal. The uncovertebral joints appear normal. No neural foraminal stenosis is seen.No soft tissue abnormality is identified. Thoracic spine: Other than mild thoracic dextrocurvature, alignment is normal. Vertebralbodies are normal in height without evidence of acute fracture. Theintervertebral discs appear normal. No central canal stenosis is seen. Thefacets appear normal. No neural foraminal stenosis is seen. No soft tissue abnormality is identified. Lumbar spine: The alignment is normal. Vertebral bodies are normal in height withoutevidence of acute fracture. The intervertebral discs appear normal. Nocentral canal stenosis is seen. The facets appear normal. No neuralforaminal stenosis is seen. A bladder catheter is partially imaged and there is a physiologic amount of freefluid in the pouch of Rigoberto. IMPRESSION IMPRESSION: 1. Small-volume right subarachnoid and subdural hemorrhage as well as asmall collection of blood along the right temporal lobe which may beextra-axial or represent a hemorrhagic contusion. 2. Longitudinal left temporal bone fracture with disruption of the tegmenmastoideum and tegmen tympani. The ossicular chain appears intact althoughthe stapes is poorly visualized due to hemotympanum. 3. Nondisplaced fracture of the left basisphenoid extending to the lateralwall of the right sphenoid sinus. 4. No evidence of vascular injury in the intracranial vasculature. 5. No evidence of acute fracture in the cervical, thoracic, or lumbarspine. Findings were discussed with Dr. Gordon of neurosurgery by Dr. Alexandra at5:21 AM on 01/22/2013. This report was approved by Saima Shields M.D. on 01/22/2013 11:[address] RUTH Collins M.D. have personally reviewed and interpreted thisexamination/study. This report was electronically signed by RUTH MARCUS M.D. on 01/22/201311:15 AM . Historical Provider CT ORDERABLES * CT CERVICAL SPINE WO CONTRAST (01/22/2013 4:38 AM CDT) Anatomical Region Laterality Modality Spine Other Impressions 01/22/2013 11:15 AM CDT IMPRESSION: 1. Small-volume right subarachnoid and subdural hemorrhage as well as a small collection of blood along the right temporal lobe which may be extra-axial or represent a hemorrhagic contusion. 2. Longitudinal left temporal bone fracture with disruption of the tegmen mastoideum and tegmen tympani. The ossicular chain appears intact although the stapes is poorly visualized due to hemotympanum. 3. Nondisplaced fracture of the left basisphenoid extending to the lateral wall of the right sphenoid sinus. 4. No evidence of vascular injury in the intracranial vasculature. 5. No evidence of acute fracture in the cervical, thoracic, or lumbar spine. Findings were discussed with Dr. Gordon of neurosurgery by Dr. Alexandra at 5:21 AM on 01/22/2013. This report was approved ??by Saima Shields M.D. ?? on 01/22/2013 11:[address] RUTH Collins M.D. have personally reviewed and interpreted this examination/study. This report was electronically signed by RUTH MARCUS M.D. ??on 01/22/2013 11:15 AM . Narrative 01/22/2013 11:15 AM CDT EXAMINATION: 1. Computed tomography (CT) of the head without contrast 2. CT of the maxillofacial bones, orbits, and paranasal sinuses without contrast 3. CT of the temporal bones without contrast 4. CT angiogram of the head with contrast 5. CT of the cervical spine without contrast 6. CT of the thoracic spine without contrast 7. CT of the lumbar spine without contrast HISTORY: Intracranial hemorrhage basilar skull fracture after injury TECHNIQUE: CT of the head, cervical spine, and maxillofacial bones, orbits, and paranasal sinuses was performed without contrast according to standard protocol. CT of the temporal bones was performed without contrast according to standard protocol. CT angiography of the head was obtained after the uneventful administration of 100 mL of Omnipaque 350 intravenous contrast. Three dimensional postprocessing was performed by the technologist and sent to the workstation for review. Reformatted axial, sagittal, and coronal images of the thoracic and lumbar spine were obtained by the technologist from a concurrently performed body CT and sent to the workstation for review. FINDINGS: No prior study is available for comparison. Head: There is small volume subarachnoid hemorrhage along the right cerebral convexity. A thin right cerebral convexity subdural hematoma measures 4 mm in maximal thickness. There is a1.7 x 1.3 cm collection of blood products in the region of the anterior right temporal lobe which may represent loculated extra-axial hemorrhage or an intraparenchymal hemorrhagic contusion. This causes mild local mass effect but no midline shift. The munoz-white matter differentiation is otherwise normal. There is also a thin left cerebral convexity acute extra-axial collection located directly under a left temporal bone fracture which will be described below. There is a tiny focus of pneumocephalus posterior to a right sphenoid sinus fracture which will be described below. The ventricles are nondilated without evidence of intraventricular hemorrhage. The basilar cisterns are patent. Left frontal and parietal scalp lacerations are seen. A small amount of gas is seen in the left frontoparietal scalp. Maxillofacial: A 5 mm radiodensity medial to the left globe likely represents a foreign body. Smaller punctate radiodensities in the left supraorbital soft tissues adjacent to a soft tissue defect likely represent foreign bodies. The orbits otherwise appear normal. A fracture line extends from the left aspect of the basisphenoid to the lateral wall of the right sphenoid sinus (best seen on series 3, image 134) with resultant hemorrhage in the sphenoid sinuses. The carotid canals do not appear involved. The hard palate, mandible, and temporomandibular joints appear normal. Temporal bones: On the right side, the external auditory canal and auricle appear normal. ??The mastoid air cells and the middle ear cavity including the middle ear ossicles appear normal. The bony labyrinth, internal auditory canal, and petrous apex appear normal. The carotid canal, jugular bulb, and course of the facial nerve appear normal. On the left side, the external auditory canal and auricle appear normal. ??There is a longitudinally oriented left temporal bone fracture extending from the outer cortex of the mastoid through the roof and anterior wall of the bony external auditory canal with associated gas and fluid in the mastoid air cells. The stapes is poorly visualized due to fluid in the middle ear cavity, but the ossicular chain appears intact. There is disruption of the tegmen mastoideum as well as the tegmen tympani by the fracture. The carotid canal appears intact. The bony labyrinth and internal auditory canal appear normal. The jugular bulb and course of the facial nerve appear normal. A small amount of pneumocephalus as well as soft tissue gas is seen adjacent to the fracture. Angiographic findings: The distal internal carotid arteries appear normal. The anterior and middle cerebral arteries appear normal. The distal vertebral arteries appear normal. The basilar artery and posterior cerebral arteries appear normal. No evidence of vascular injury is identified. Cervical spine: The alignment is normal. Vertebral bodies are normal in height without evidence of acute fracture. The craniocervical junction is normal. The intervertebral discs appear normal. No central canal stenosis is seen. The facets appear normal. The uncovertebral joints appear normal. No neural foraminal stenosis is seen. No soft tissue abnormality is identified. Thoracic spine: Other than mild thoracic dextrocurvature, alignment is normal. Vertebral bodies are normal in height without evidence of acute fracture. The intervertebral discs appear normal. No central canal stenosis is seen. The facets appear normal. No neural foraminal stenosis is seen. No soft tissue abnormality is identified. Lumbar spine: The alignment is normal. Vertebral bodies are normal in height without evidence of acute fracture. The intervertebral discs appear normal. No central canal stenosis is seen. The facets appear normal. No neural foraminal stenosis is seen. A bladder catheter is partially imaged and there is a physiologic amount of free fluid in the pouch of Rigoberto. Procedure Note Ruth Marcus MD - 11/06/2017 EXAMINATION: 1. Computed tomography (CT) of the head without contrast 2. CT of the maxillofacial bones, orbits, and paranasal sinuses withoutcontrast 3. CT of the temporal bones without contrast 4. CT angiogram of the head with contrast 5. CT of the cervical spine without contrast 6. CT of the thoracic spine without contrast 7. CT of the lumbar spine without contrast HISTORY: Intracranial hemorrhage basilar skull fracture after injury TECHNIQUE: CT of the head, cervical spine, and maxillofacial bones,orbits, and paranasal sinuses was performed without contrast according tostandard protocol. CT of the temporal bones was performed without contrastaccording to standard protocol. CT angiography of the head was obtained after the uneventful administrationof 100 mL of Omnipaque 350 intravenous contrast. Three dimensionalpostprocessing was performed by the technologist and sent to theworkstation for review. Reformatted axial, sagittal, and coronal images of the thoracic and lumbar spine wereobtained by the technologist from a concurrently performed body CT andsent to the workstation for review. FINDINGS: No prior study is available for comparison. Head: There is small volume subarachnoid hemorrhage along the right cerebralconvexity. A thin right cerebral convexity subdural hematoma measures 4 mmin maximal thickness. There is a1.7 x 1.3 cm collection of blood productsin the region of the anterior right temporal lobe which may represent loculated extra-axial hemorrhageor an intraparenchymal hemorrhagic contusion. This causes mild local masseffect but no midline shift. The munoz-white matter differentiation isotherwise normal. There is also a thin left cerebral convexity acute extra-axial collection located directlyunder a left temporal bone fracture which will be described below. Thereis a tiny focus of pneumocephalus posterior to a right sphenoid sinusfracture which will be described below. The ventricles are nondilated without evidence of intraventricularhemorrhage. The basilar cisterns are patent. Left frontal and parietalscalp lacerations are seen. A small amount of gas is seen in the leftfrontoparietal scalp. Maxillofacial: A 5 mm radiodensity medial to the left globe likely represents a foreignbody. Smaller punctate radiodensities in the left supraorbital softtissues adjacent to a soft tissue defect likely represent foreign bodies.The orbits otherwise appear normal. A fracture line extends from the left aspect of the basisphenoid to thelateral wall of the right sphenoid sinus (best seen on series 3, [id number]) with resultant hemorrhage in the sphenoid sinuses. The carotid canalsdo not appear involved. The hard palate, mandible, and temporomandibular joints appear normal. Temporal bones: On the right side, the external auditory canal and auricle appear normal.The mastoid air cells and the middle ear cavity including the middle earossicles appear normal. The bony labyrinth, internal auditory canal, andpetrous apex appear normal. The carotid canal, jugular bulb, and course of the facial nerve appearnormal. On the left side, the external auditory canal and auricle appear normal.There is a longitudinally oriented left temporal bone fracture extendingfrom the outer cortex of the mastoid through the roof and anterior wall ofthe bony external auditory canal with associated gas and fluid in the mastoid air cells. The stapes ispoorly visualized due to fluid in the middle ear cavity, but the ossicularchain appears intact. There is disruption of the tegmen mastoideum as wellas the tegmen tympani by the fracture. The carotid canal appears intact. The bony labyrinth andinternal auditory canal appear normal. The jugular bulb and course of thefacial nerve appear normal. A small amount of pneumocephalus as well assoft tissue gas is seen adjacent to the fracture. Angiographic findings: The distal internal carotid arteries appear normal. The anterior andmiddle cerebral arteries appear normal. The distal vertebral arteriesappear normal. The basilar artery and posterior cerebral arteries appearnormal. No evidence of vascular injury is identified. Cervical spine: The alignment is normal. Vertebral bodies are normal in height withoutevidence of acute fracture. The craniocervical junction is normal. Theintervertebral discs appear normal. No central canal stenosis is seen. Thefacets appear normal. The uncovertebral joints appear normal. No neural foraminal stenosis is seen.No soft tissue abnormality is identified. Thoracic spine: Other than mild thoracic dextrocurvature, alignment is normal. Vertebralbodies are normal in height without evidence of acute fracture. Theintervertebral discs appear normal. No central canal stenosis is seen. Thefacets appear normal. No neural foraminal stenosis is seen. No soft tissue abnormality is identified. Lumbar spine: The alignment is normal. Vertebral bodies are normal in height withoutevidence of acute fracture. The intervertebral discs appear normal. Nocentral canal stenosis is seen. The facets appear normal. No neuralforaminal stenosis is seen. A bladder catheter is partially imaged and there is a physiologic amount of freefluid in the pouch of Rigoberto. IMPRESSION IMPRESSION: 1. Small-volume right subarachnoid and subdural hemorrhage as well as asmall collection of blood along the right temporal lobe which may beextra-axial or represent a hemorrhagic contusion. 2. Longitudinal left temporal bone fracture with disruption of the tegmenmastoideum and tegmen tympani. The ossicular chain appears intact althoughthe stapes is poorly visualized due to hemotympanum. 3. Nondisplaced fracture of the left basisphenoid extending to the lateralwall of the right sphenoid sinus. 4. No evidence of vascular injury in the intracranial vasculature. 5. No evidence of acute fracture in the cervical, thoracic, or lumbarspine. Findings were discussed with Dr. Gordon of neurosurgery by Dr. Alexandra at5:21 AM on 01/22/2013. This report was approved by Saima Shields M.D. on 01/22/2013 11:01 AM . I, Dr. RUTH MARCUS M.D. have personally reviewed and interpreted thisexamination/study. This report was electronically signed by RUTH MARCUS M.D. on 01/22/201311:15 AM . Historical Provider CT ORDERABLES * CT FACIAL BONES WO CONTRAST (01/22/2013 4:38 AM CDT) Anatomical Region Laterality Modality Head Other Impressions 01/22/2013 11:15 AM CDT IMPRESSION: 1. Small-volume right subarachnoid and subdural hemorrhage as well as a small collection of blood along the right temporal lobe which may be extra-axial or represent a hemorrhagic contusion. 2. Longitudinal left temporal bone fracture with disruption of the tegmen mastoideum and tegmen tympani. The ossicular chain appears intact although the stapes is poorly visualized due to hemotympanum. 3. Nondisplaced fracture of the left basisphenoid extending to the lateral wall of the right sphenoid sinus. 4. No evidence of vascular injury in the intracranial vasculature. 5. No evidence of acute fracture in the cervical, thoracic, or lumbar spine. Findings were discussed with Dr. Gordon of neurosurgery by Dr. Alexandra at 5:21 AM on 01/22/2013. This report was approved ??by Saima Shields M.D. ?? on 01/22/2013 11:01 AM . I, Dr. RUTH MARCUS M.D. have personally reviewed and interpreted this examination/study. This report was electronically signed by RUTH MARCUS M.D. ??on 01/22/2013 11:15 AM . Narrative 01/22/2013 11:15 AM CDT EXAMINATION: 1. Computed tomography (CT) of the head without contrast 2. CT of the maxillofacial bones, orbits, and paranasal sinuses without contrast 3. CT of the temporal bones without contrast 4. CT angiogram of the head with contrast 5. CT of the cervical spine without contrast 6. CT of the thoracic spine without contrast 7. CT of the lumbar spine without contrast HISTORY: Intracranial hemorrhage basilar skull fracture after injury TECHNIQUE: CT of the head, cervical spine, and maxillofacial bones, orbits, and paranasal sinuses was performed without contrast according to standard protocol. CT of the temporal bones was performed without contrast according to standard protocol. CT angiography of the head was obtained after the uneventful administration of 100 mL of Omnipaque 350 intravenous contrast. Three dimensional postprocessing was performed by the technologist and sent to the workstation for review. Reformatted axial, sagittal, and coronal images of the thoracic and lumbar spine were obtained by the technologist from a concurrently performed body CT and sent to the workstation for review. FINDINGS: No prior study is available for comparison. Head: There is small volume subarachnoid hemorrhage along the right cerebral convexity. A thin right cerebral convexity subdural hematoma measures 4 mm in maximal thickness. There is a1.7 x 1.3 cm collection of blood products in the region of the anterior right temporal lobe which may represent loculated extra-axial hemorrhage or an intraparenchymal hemorrhagic contusion. This causes mild local mass effect but no midline shift. The munoz-white matter differentiation is otherwise normal. There is also a thin left cerebral convexity acute extra-axial collection located directly under a left temporal bone fracture which will be described below. There is a tiny focus of pneumocephalus posterior to a right sphenoid sinus fracture which will be described below. The ventricles are nondilated without evidence of intraventricular hemorrhage. The basilar cisterns are patent. Left frontal and parietal scalp lacerations are seen. A small amount of gas is seen in the left frontoparietal scalp. Maxillofacial: A 5 mm radiodensity medial to the left globe likely represents a foreign body. Smaller punctate radiodensities in the left supraorbital soft tissues adjacent to a soft tissue defect likely represent foreign bodies. The orbits otherwise appear normal. A fracture line extends from the left aspect of the basisphenoid to the lateral wall of the right sphenoid sinus (best seen on series 3, image 134) with resultant hemorrhage in the sphenoid sinuses. The carotid canals do not appear involved. The hard palate, mandible, and temporomandibular joints appear normal. Temporal bones: On the right side, the external auditory canal and auricle appear normal. ??The mastoid air cells and the middle ear cavity including the middle ear ossicles appear normal. The bony labyrinth, internal auditory canal, and petrous apex appear normal. The carotid canal, jugular bulb, and course of the facial nerve appear normal. On the left side, the external auditory canal and auricle appear normal. ??There is a longitudinally oriented left temporal bone fracture extending from the outer cortex of the mastoid through the roof and anterior wall of the bony external auditory canal with associated gas and fluid in the mastoid air cells. The stapes is poorly visualized due to fluid in the middle ear cavity, but the ossicular chain appears intact. There is disruption of the tegmen mastoideum as well as the tegmen tympani by the fracture. The carotid canal appears intact. The bony labyrinth and internal auditory canal appear normal. The jugular bulb and course of the facial nerve appear normal. A small amount of pneumocephalus as well as soft tissue gas is seen adjacent to the fracture. Angiographic findings: The distal internal carotid arteries appear normal. The anterior and middle cerebral arteries appear normal. The distal vertebral arteries appear normal. The basilar artery and posterior cerebral arteries appear normal. No evidence of vascular injury is identified. Cervical spine: The alignment is normal. Vertebral bodies are normal in height without evidence of acute fracture. The craniocervical junction is normal. The intervertebral discs appear normal. No central canal stenosis is seen. The facets appear normal. The uncovertebral joints appear normal. No neural foraminal stenosis is seen. No soft tissue abnormality is identified. Thoracic spine: Other than mild thoracic dextrocurvature, alignment is normal. Vertebral bodies are normal in height without evidence of acute fracture. The intervertebral discs appear normal. No central canal stenosis is seen. The facets appear normal. No neural foraminal stenosis is seen. No soft tissue abnormality is identified. Lumbar spine: The alignment is normal. Vertebral bodies are normal in height without evidence of acute fracture. The intervertebral discs appear normal. No central canal stenosis is seen. The facets appear normal. No neural foraminal stenosis is seen. A bladder catheter is partially imaged and there is a physiologic amount of free fluid in the pouch of Rigoberto. Procedure Note Ruth Marcus MD - 11/06/2017 EXAMINATION: 1. Computed tomography (CT) of the head without contrast 2. CT of the maxillofacial bones, orbits, and paranasal sinuses withoutcontrast 3. CT of the temporal bones without contrast 4. CT angiogram of the head with contrast 5. CT of the cervical spine without contrast 6. CT of the thoracic spine without contrast 7. CT of the lumbar spine without contrast HISTORY: Intracranial hemorrhage basilar skull fracture after injury TECHNIQUE: CT of the head, cervical spine, and maxillofacial bones,orbits, and paranasal sinuses was performed without contrast according tostandard protocol. CT of the temporal bones was performed without contrastaccording to standard protocol. CT angiography of the head was obtained after the uneventful administrationof 100 mL of Omnipaque 350 intravenous contrast. Three dimensionalpostprocessing was performed by the technologist and sent to theworkstation for review. Reformatted axial, sagittal, and coronal images of the thoracic and lumbar spine wereobtained by the technologist from a concurrently performed body CT andsent to the workstation for review. FINDINGS: No prior study is available for comparison. Head: There is small volume subarachnoid hemorrhage along the right cerebralconvexity. A thin right cerebral convexity subdural hematoma measures 4 mmin maximal thickness. There is a1.7 x 1.3 cm collection of blood productsin the region of the anterior right temporal lobe which may represent loculated extra-axial hemorrhageor an intraparenchymal hemorrhagic contusion. This causes mild local masseffect but no midline shift. The munoz-white matter differentiation isotherwise normal. There is also a thin left cerebral convexity acute extra-axial collection located directlyunder a left temporal bone fracture which will be described below. Thereis a tiny focus of pneumocephalus posterior to a right sphenoid sinusfracture which will be described below. The ventricles are nondilated without evidence of intraventricularhemorrhage. The basilar cisterns are patent. Left frontal and parietalscalp lacerations are seen. A small amount of gas is seen in the leftfrontoparietal scalp. Maxillofacial: A 5 mm radiodensity medial to the left globe likely represents a foreignbody. Smaller punctate radiodensities in the left supraorbital softtissues adjacent to a soft tissue defect likely represent foreign bodies.The orbits otherwise appear normal. A fracture line extends from the left aspect of the basisphenoid to thelateral wall of the right sphenoid sinus (best seen on series 3, [id number]) with resultant hemorrhage in the sphenoid sinuses. The carotid canalsdo not appear involved. The hard palate, mandible, and temporomandibular joints appear normal. Temporal bones: On the right side, the external auditory canal and auricle appear normal.The mastoid air cells and the middle ear cavity including the middle earossicles appear normal. The bony labyrinth, internal auditory canal, andpetrous apex appear normal. The carotid canal, jugular bulb, and course of the facial nerve appearnormal. On the left side, the external auditory canal and auricle appear normal.There is a longitudinally oriented left temporal bone fracture extendingfrom the outer cortex of the mastoid through the roof and anterior wall ofthe bony external auditory canal with associated gas and fluid in the mastoid air cells. The stapes ispoorly visualized due to fluid in the middle ear cavity, but the ossicularchain appears intact. There is disruption of the tegmen mastoideum as wellas the tegmen tympani by the fracture. The carotid canal appears intact. The bony labyrinth andinternal auditory canal appear normal. The jugular bulb and course of thefacial nerve appear normal. A small amount of pneumocephalus as well assoft tissue gas is seen adjacent to the fracture. Angiographic findings: The distal internal carotid arteries appear normal. The anterior andmiddle cerebral arteries appear normal. The distal vertebral arteriesappear normal. The basilar artery and posterior cerebral arteries appearnormal. No evidence of vascular injury is identified. Cervical spine: The alignment is normal. Vertebral bodies are normal in height withoutevidence of acute fracture. The craniocervical junction is normal. Theintervertebral discs appear normal. No central canal stenosis is seen. Thefacets appear normal. The uncovertebral joints appear normal. No neural foraminal stenosis is seen.No soft tissue abnormality is identified. Thoracic spine: Other than mild thoracic dextrocurvature, alignment is normal. Vertebralbodies are normal in height without evidence of acute fracture. Theintervertebral discs appear normal. No central canal stenosis is seen. Thefacets appear normal. No neural foraminal stenosis is seen. No soft tissue abnormality is identified. Lumbar spine: The alignment is normal. Vertebral bodies are normal in height withoutevidence of acute fracture. The intervertebral discs appear normal. Nocentral canal stenosis is seen. The facets appear normal. No neuralforaminal stenosis is seen. A bladder catheter is partially imaged and there is a physiologic amount of freefluid in the pouch of Rigoberto. IMPRESSION IMPRESSION: 1. Small-volume right subarachnoid and subdural hemorrhage as well as asmall collection of blood along the right temporal lobe which may beextra-axial or represent a hemorrhagic contusion. 2. Longitudinal left temporal bone fracture with disruption of the tegmenmastoideum and tegmen tympani. The ossicular chain appears intact althoughthe stapes is poorly visualized due to hemotympanum. 3. Nondisplaced fracture of the left basisphenoid extending to the lateralwall of the right sphenoid sinus. 4. No evidence of vascular injury in the intracranial vasculature. 5. No evidence of acute fracture in the cervical, thoracic, or lumbarspine. Findings were discussed with Dr. Gordon of neurosurgery by Dr. Alexandra at5:21 AM on 01/22/2013. This report was approved by Saima Shields M.D. on 01/22/2013 11:01 AM . I, Dr. RUTH MARCUS M.D. have personally reviewed and interpreted thisexamination/study. This report was electronically signed by RUTH MARCUS M.D. on 01/22/201311:15 AM . Historical Provider MD CT ORDERABLES * CT ANGIO BRAIN (01/22/2013 4:38 AM CDT) Anatomical Region Laterality Modality Head Other Impressions 01/22/2013 11:15 AM CDT IMPRESSION: 1. Small-volume right subarachnoid and subdural hemorrhage as well as a small collection of blood along the right temporal lobe which may be extra-axial or represent a hemorrhagic contusion. 2. Longitudinal left temporal bone fracture with disruption of the tegmen mastoideum and tegmen tympani. The ossicular chain appears intact although the stapes is poorly visualized due to hemotympanum. 3. Nondisplaced fracture of the left basisphenoid extending to the lateral wall of the right sphenoid sinus. 4. No evidence of vascular injury in the intracranial vasculature. 5. No evidence of acute fracture in the cervical, thoracic, or lumbar spine. Findings were discussed with Dr. Gordon of neurosurgery by Dr. Alexandra at 5:21 AM on 01/22/2013. This report was approved ??by Saima Shields M.D. ?? on 01/22/2013 11:01 AM . I, Dr. RUTH MARCUS M.D. have personally reviewed and interpreted this examination/study. This report was electronically signed by RUTH MARCUS M.D. ??on 01/22/2013 11:15 AM . Narrative 01/22/2013 11:15 AM CDT EXAMINATION: 1. Computed tomography (CT) of the head without contrast 2. CT of the maxillofacial bones, orbits, and paranasal sinuses without contrast 3. CT of the temporal bones without contrast 4. CT angiogram of the head with contrast 5. CT of the cervical spine without contrast 6. CT of the thoracic spine without contrast 7. CT of the lumbar spine without contrast HISTORY: Intracranial hemorrhage basilar skull fracture after injury TECHNIQUE: CT of the head, cervical spine, and maxillofacial bones, orbits, and paranasal sinuses was performed without contrast according to standard protocol. CT of the temporal bones was performed without contrast according to standard protocol. CT angiography of the head was obtained after the uneventful administration of 100 mL of Omnipaque 350 intravenous contrast. Three dimensional postprocessing was performed by the technologist and sent to the workstation for review. Reformatted axial, sagittal, and coronal images of the thoracic and lumbar spine were obtained by the technologist from a concurrently performed body CT and sent to the workstation for review. FINDINGS: No prior study is available for comparison. Head: There is small volume subarachnoid hemorrhage along the right cerebral convexity. A thin right cerebral convexity subdural hematoma measures 4 mm in maximal thickness. There is a1.7 x 1.3 cm collection of blood products in the region of the anterior right temporal lobe which may represent loculated extra-axial hemorrhage or an intraparenchymal hemorrhagic contusion. This causes mild local mass effect but no midline shift. The munoz-white matter differentiation is otherwise normal. There is also a thin left cerebral convexity acute extra-axial collection located directly under a left temporal bone fracture which will be described below. There is a tiny focus of pneumocephalus posterior to a right sphenoid sinus fracture which will be described below. The ventricles are nondilated without evidence of intraventricular hemorrhage. The basilar cisterns are patent. Left frontal and parietal scalp lacerations are seen. A small amount of gas is seen in the left frontoparietal scalp. Maxillofacial: A 5 mm radiodensity medial to the left globe likely represents a foreign body. Smaller punctate radiodensities in the left supraorbital soft tissues adjacent to a soft tissue defect likely represent foreign bodies. The orbits otherwise appear normal. A fracture line extends from the left aspect of the basisphenoid to the lateral wall of the right sphenoid sinus (best seen on series 3, image 134) with resultant hemorrhage in the sphenoid sinuses. The carotid canals do not appear involved. The hard palate, mandible, and temporomandibular joints appear normal. Temporal bones: On the right side, the external auditory canal and auricle appear normal. ??The mastoid air cells and the middle ear cavity including the middle ear ossicles appear normal. The bony labyrinth, internal auditory canal, and petrous apex appear normal. The carotid canal, jugular bulb, and course of the facial nerve appear normal. On the left side, the external auditory canal and auricle appear normal. ??There is a longitudinally oriented left temporal bone fracture extending from the outer cortex of the mastoid through the roof and anterior wall of the bony external auditory canal with associated gas and fluid in the mastoid air cells. The stapes is poorly visualized due to fluid in the middle ear cavity, but the ossicular chain appears intact. There is disruption of the tegmen mastoideum as well as the tegmen tympani by the fracture. The carotid canal appears intact. The bony labyrinth and internal auditory canal appear normal. The jugular bulb and course of the facial nerve appear normal. A small amount of pneumocephalus as well as soft tissue gas is seen adjacent to the fracture. Angiographic findings: The distal internal carotid arteries appear normal. The anterior and middle cerebral arteries appear normal. The distal vertebral arteries appear normal. The basilar artery and posterior cerebral arteries appear normal. No evidence of vascular injury is identified. Cervical spine: The alignment is normal. Vertebral bodies are normal in height without evidence of acute fracture. The craniocervical junction is normal. The intervertebral discs appear normal. No central canal stenosis is seen. The facets appear normal. The uncovertebral joints appear normal. No neural foraminal stenosis is seen. No soft tissue abnormality is identified. Thoracic spine: Other than mild thoracic dextrocurvature, alignment is normal. Vertebral bodies are normal in height without evidence of acute fracture. The intervertebral discs appear normal. No central canal stenosis is seen. The facets appear normal. No neural foraminal stenosis is seen. No soft tissue abnormality is identified. Lumbar spine: The alignment is normal. Vertebral bodies are normal in height without evidence of acute fracture. The intervertebral discs appear normal. No central canal stenosis is seen. The facets appear normal. No neural foraminal stenosis is seen. A bladder catheter is partially imaged and there is a physiologic amount of free fluid in the pouch of Rigoberto. Procedure Note Ruth Marcus MD - 11/06/2017 EXAMINATION: 1. Computed tomography (CT) of the head without contrast 2. CT of the maxillofacial bones, orbits, and paranasal sinuses withoutcontrast 3. CT of the temporal bones without contrast 4. CT angiogram of the head with contrast 5. CT of the cervical spine without contrast 6. CT of the thoracic spine without contrast 7. CT of the lumbar spine without contrast HISTORY: Intracranial hemorrhage basilar skull fracture after injury TECHNIQUE: CT of the head, cervical spine, and maxillofacial bones,orbits, and paranasal sinuses was performed without contrast according tostandard protocol. CT of the temporal bones was performed without contrastaccording to standard protocol. CT angiography of the head was obtained after the uneventful administrationof 100 mL of Omnipaque 350 intravenous contrast. Three dimensionalpostprocessing was performed by the technologist and sent to theworkstation for review. Reformatted axial, sagittal, and coronal images of the thoracic and lumbar spine wereobtained by the technologist from a concurrently performed body CT andsent to the workstation for review. FINDINGS: No prior study is available for comparison. Head: There is small volume subarachnoid hemorrhage along the right cerebralconvexity. A thin right cerebral convexity subdural hematoma measures 4 mmin maximal thickness. There is a1.7 x 1.3 cm collection of blood productsin the region of the anterior right temporal lobe which may represent loculated extra-axial hemorrhageor an intraparenchymal hemorrhagic contusion. This causes mild local masseffect but no midline shift. The munoz-white matter differentiation isotherwise normal. There is also a thin left cerebral convexity acute extra-axial collection located directlyunder a left temporal bone fracture which will be described below. Thereis a tiny focus of pneumocephalus posterior to a right sphenoid sinusfracture which will be described below. The ventricles are nondilated without evidence of intraventricularhemorrhage. The basilar cisterns are patent. Left frontal and parietalscalp lacerations are seen. A small amount of gas is seen in the leftfrontoparietal scalp. Maxillofacial: A 5 mm radiodensity medial to the left globe likely represents a foreignbody. Smaller punctate radiodensities in the left supraorbital softtissues adjacent to a soft tissue defect likely represent foreign bodies.The orbits otherwise appear normal. A fracture line extends from the left aspect of the basisphenoid to thelateral wall of the right sphenoid sinus (best seen on series 3, ) with resultant hemorrhage in the sphenoid sinuses. The carotid canalsdo not appear involved. The hard palate, mandible, and temporomandibular joints appear normal. Temporal bones: On the right side, the external auditory canal and auricle appear normal.The mastoid air cells and the middle ear cavity including the middle earossicles appear normal. The bony labyrinth, internal auditory canal, andpetrous apex appear normal. The carotid canal, jugular bulb, and course of the facial nerve appearnormal. On the left side, the external auditory canal and auricle appear normal.There is a longitudinally oriented left temporal bone fracture extendingfrom the outer cortex of the mastoid through the roof and anterior wall ofthe bony external auditory canal with associated gas and fluid in the mastoid air cells. The stapes ispoorly visualized due to fluid in the middle ear cavity, but the ossicularchain appears intact. There is disruption of the tegmen mastoideum as wellas the tegmen tympani by the fracture. The carotid canal appears intact. The bony labyrinth andinternal auditory canal appear normal. The jugular bulb and course of thefacial nerve appear normal. A small amount of pneumocephalus as well assoft tissue gas is seen adjacent to the fracture. Angiographic findings: The distal internal carotid arteries appear normal. The anterior andmiddle cerebral arteries appear normal. The distal vertebral arteriesappear normal. The basilar artery and posterior cerebral arteries appearnormal. No evidence of vascular injury is identified. Cervical spine: The alignment is normal. Vertebral bodies are normal in height withoutevidence of acute fracture. The craniocervical junction is normal. Theintervertebral discs appear normal. No central canal stenosis is seen. Thefacets appear normal. The uncovertebral joints appear normal. No neural foraminal stenosis is seen.No soft tissue abnormality is identified. Thoracic spine: Other than mild thoracic dextrocurvature, alignment is normal. Vertebralbodies are normal in height without evidence of acute fracture. Theintervertebral discs appear normal. No central canal stenosis is seen. Thefacets appear normal. No neural foraminal stenosis is seen. No soft tissue abnormality is identified. Lumbar spine: The alignment is normal. Vertebral bodies are normal in height withoutevidence of acute fracture. The intervertebral discs appear normal. Nocentral canal stenosis is seen. The facets appear normal. No neuralforaminal stenosis is seen. A bladder catheter is partially imaged and there is a physiologic amount of freefluid in the pouch of Rigoberto. IMPRESSION IMPRESSION: 1. Small-volume right subarachnoid and subdural hemorrhage as well as asmall collection of blood along the right temporal lobe which may beextra-axial or represent a hemorrhagic contusion. 2. Longitudinal left temporal bone fracture with disruption of the tegmenmastoideum and tegmen tympani. The ossicular chain appears intact althoughthe stapes is poorly visualized due to hemotympanum. 3. Nondisplaced fracture of the left basisphenoid extending to the lateralwall of the right sphenoid sinus. 4. No evidence of vascular injury in the intracranial vasculature. 5. No evidence of acute fracture in the cervical, thoracic, or lumbarspine. Findings were discussed with Dr. Gordon of neurosurgery by Dr. Alexandra at5:21 AM on 01/22/2013. This report was approved by Saima Shields M.D. on 01/22/2013 11:01 AM . I, Dr. RUTH MARCUS M.D. have personally reviewed and interpreted thisexamination/study. This report was electronically signed by RUTH MARCUS M.D. on 01/22/201311:15 AM . Ronny Alvarado MD CT ORDERABLES * PTT U (01/22/2013 4:03 AM CDT) APTT 29.9 23.0 - 38.4 SECONDS [facility] Comment: SUGGESTED THERAPEUTIC RANGE FOR FULL DOSE I.V. HEPARIN THERAPY FOR VENOUS THROMBOEMBOLISM IS 66.0 - 91.0 SECONDS, WITH AN APTT RATIO OF 2.1 - 3.0. APTT Ratio 0.98 [facility] Plasma specimen (specimen) 01/22/2013 4:03 AM CDT 01/22/2013 4:08 AM CDT Narrative [facility] - 01/22/2013 4:29 AM CDT Is patient on Heparin, Argatroban or Dabigatran?->N IS PATIENT ON HEPARIN? (Y OR N) N Historical Provider LAB - COAGULATION ORDERABLES [facility] [address] [place] [address] * PT-INR U (01/22/2013 4:03 AM CDT) PT 14.5 12.1 - 14.8 SECONDS [facility] INR 1.1 [facility] Comment: SUGGESTED THERAPEUTIC RANGE FOR LOW-INTENSITY COUMADIN THERAPY FOR VENOUS THROMBOEMBOLISM IS INR 2.0-3.0. ??FOR HIGH RISK PATIENTS (MITRAL VALVE PROSTHESIS, ATRIAL FIBRILLATION, HISTORY OF TIA/STROKE), SUGGESTED THERAPEUTIC RANGE IS INR 2.5-3.5. Plasma specimen (specimen) 01/22/2013 4:03 AM CDT 01/22/2013 4:08 AM CDT Narrative [facility] - 01/22/2013 4:29 AM CDT Is patient on Heparin, Argatroban or Dabigatran?->N IS PATIENT ON HEPARIN? (Y OR N) N Historical Provider LAB - COAGULATION ORDERABLES [address] [phone] * DRUG ABUSE PANEL 10-20+ETHANOL URINE NO CONFIRM (01/22/2013 4:03 AM CDT) [facility] Amphetamines NEGATIVE NEGATIVE [facility] Comment:Positive Cutoff: >=1 000 ng/mL Barbiturate NEGATIVE NEGATIVE [facility] Comment:Positive Cutoff: >=2 00 ng/mL Benzodiazepine Screen Urine NEGATIVE NEGATIVE [facility] Comment:Positive Cutoff: >=2 00 ng/mL Opiates NEGATIVE NEGATIVE [facility] Comment:Positive Cutoff: >=3 00 ng/mL Cocaine Metabolite Urine NEGATIVE NEGATIVE [facility] Comment:Positive Cutoff: >=3 00 ng/mL Phencyclidine Screen Urine NEGATIVE NEGATIVE [facility] Comment:Positive Cutoff: >=2 5 ng/mL Cannabinoids Screen Urine NEGATIVE NEGATIVE [facility] Comment:Positive Cutoff: >=5 0 ng/mL Methadone NEGATIVE NEGATIVE [facility] Comment:Positive Cutoff: >=3 00 ng/mL Note SEE NOTE [facility] Comment: Positive results should be confirmed by another generally accepted non-immunological method such as gas chromatography or mass spectrometry. Toxicology testing by the [facility] is an aid to medical diagnosis and treatment of patients. No documented chain of custody was maintained. Results are intended to be used for clinical purposes only. Note SEE NOTE [facility] Comment: The UTOX Panel does not screen for Propoxyphene, Meprobamate, Carisoprodol, Trazodone, xkxo-olb-tytvxca medications and/or volatiles (Acetone, Isopropanol, Methanol, Ethylene Glycol). Ethanol, Salicylate, Acetaminophen, Tricyclic Antidepressants and several therapeutic drugs may be individually assayed in a serum specimen. Urine specimen (specimen) URINE SPECIMEN COLLECTION, CATHETERIZED / Unknown 01/22/2013 4:03 AM CDT 01/22/2013 4:08 AM CDT Historical Provider LAB - URINE CHEMI STRY ORDERABLES Performing Organization Address [facility] Co de Phone Number [address] [phone] * TYPE + SCREEN PANEL (01/22/2013 4:03 AM CDT) Interpretation ABO/Rh Patient O POS [facility] Antibody Screen NEGATIVE [facility] Venous blood specimen (specimen) 01/22/2013 4:03 AM CDT 01/22/2013 4:17 AM CDT Historical Provider LAB - BLOOD BANK ORDERABLES Performing Organization Address [facility] [place] [address], [facility] [phone] * LIPASE BLOOD (01/22/2013 4:03 AM CDT) Lipase 18 8 - 78 Units/L [facility] Serum 01/22/2013 4:03 AM CDT 01/22/2013 4:08 AM CDT Narrative [facility] - 01/22/2013 5:00 AM CDT IS PATIENT ON HEPARIN? (Y OR N) N Historical Provider LAB - CHEMISTRY O RDERABLES Performing Organization Address [facility] [place] [address], [facility] [phone] * ALCOHOL ETHYL BLOOD (01/22/2013 4:03 AM CDT) Ethanol 124 NONE DETECTED mg/dL [facility] Comment: Ethanol in the patient's blood will contribute to the osmolar gap. ??Ethanol's contribution to the osmolar gap can be estimated by dividing the concentration of ethanol in mg/dL by 4.6. . Venous blood specimen (specimen) 01/22/2013 4:03 AM CDT 01/22/2013 4:08 AM CDT Narrative [facility] - 01/22/2013 5:00 AM CDT IS PATIENT ON HEPARIN? (Y OR N) N Historical Provider LAB - CHEMISTRY O RDERABLES [address] [phone] * XR CHEST 1VW PORTABLE (01/22/2013 4:00 AM CDT) Anatomical Region Laterality Modality Chest Other Impressions 01/22/2013 9:20 AM CDT Impression: No acute pulmonary disease. Report dictated by Tad Qiu MD (microarray operations vice president). I, Dr. ROXANNE CARNES M.D. have personally reviewed and interpreted this examination/study. This report was electronically signed by ROXANNE CARNES M.D. ??on 01/22/2013 9:20 AM . Narrative 01/22/2013 9:20 AM CDT Exam: Portable Chest X-ray, 1 view Date: 01/22/2013 0403 hours. History: trauma Comparison: None available Findings: There is no focal consolidation, pleural effusion, or pneumothorax. The cardiomediastinal silhouette is normal. The visible bony thorax is intact. A 5 mm radiopaque density of unknown etiology overlies the epigastrium. This is likely external to the patient. Procedure Note Roxanne Carnes MD - 11/06/2017 Exam: Portable Chest X-ray, 1 view Date: 01/22/2013 0403 hours. History: trauma Comparison: None available Findings: There is no focal consolidation, pleural effusion, or pneumothorax. Thecardiomediastinal silhouette is normal. The visible bony thorax is intact.A 5 mm radiopaque density of unknown etiology overlies the epigastrium.This is likely external to the patient. IMPRESSION Impression: No acute pulmonary disease. Report dictated by Tad Qiu MD (microarray operations vice president). I, Dr. ROXANNE CARNES M.D. have personally reviewed and interpreted thisexamination/study. This report was electronically signed by ROXANNE CARNES M.D. on01/22/2013 9:20 AM . Historical Provider MD ROMEO Magallon ORDERABLES
--- OUTSIDE RECORDS SUMMARY | 2024-09-04 15:15 | XMS_ITS | Referral Summary ---
Author Organization [facility] Address [address] [place] [address] Care Team Providers Care Vegetable Buncher Name Role Phone Unavailable Primary Care Provider Unavailabl e Source Comments [facility],non-owned Affiliates and Associated Physician Practices is amultiple site organization consisting of ambulatory clinics and hospital sitesin [place], [place], [place] and [place]. This disclosure is being madepursuant to the Care Everywhere program and may not contain all information available regarding this patient. Last updated 18.[facility] Allergies No known active allergies Medications * Be aware that medications may not be up to date on this document. Alwaysverify current medications with the patient. Medication Sig Dispensed Refills Start Date End Date Status trimethoprim-polymy louann B (POLYTRIM) 99496-5.1 UNIT/ML-% ophthalmic solution 1-2 drops in the right eye four times daily x 7 days. 1 bottles 09/06/2017 Active Additional Information Patient not taking.Reported on 01/31/2023 citalopram (CeleXA) 40 MG tabletIndications:G eneralized Anxiety Disorder Take 0.5 (one-half) tablet by mouth once daily Reasons: Generalized Anxiety Disorder 30 tablet 01/31/2023 Active hydrOXYzine HCl (Atarax) 25 MG tablet Take 1 (one) tablet by mouth 3 times daily as needed for Itching 90 tablet 01/31/2023 Active Active Problems Problem Noted Date Diagnosed Date [...] Oxygen Saturation 99% 09/06/2017 10: 56 AM CORE FEEDER Inhaled Oxygen Concentration - - Weight 84.7 kg (186 lb 12.8 oz) 023 11:35 AM CDT Height 160 cm (5' 3 ) 01/31/2023 11:35 AM CDT Body Mass Index 33.09 01/31/2023 11:35 AM CDT Plan of Treatment Not on file ROXANE DEL ANGEL Personal/Family 1990 [address] [place] [address] Roxane Alvarez Personal/Family Self 1990 [address] [place] [address] Roxane Alvarez [facility] Self 1990 [address] [place] [address]
--- OUTSIDE RECORDS SUMMARY | 2024-09-04 15:15 | XMS_ITS | Clinical Summary ---
Author Organization [facility] Address [address] [place] [address] Care Team Providers Care Seat Covers Trimmer Name Role Phone Unavailable Primary Care Provider Unavailabl e Source Comments [facility],non-owned Affiliates and Associated Physician Practices is amultiple site organization consisting of ambulatory clinics and hospital sitesin [place], [place], [place] and [place]. This disclosure is being madepursuant to the Care Everywhere program and may not contain all information available regarding this patient. Last updated 18.[facility] Allergies No known active allergies Medications * Be aware that medications may not be up to date on this document. Alwaysverify current medications with the patient. 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 Inhaled Oxygen Concentration - - Weight 84.7 kg (186 lb 12.8 oz) 023 11:35 AM CDT Height 160 cm (5' 3 ) 01/31/2023 11:35 AM CDT Body Mass Index 33.09 01/31/2023 11:35 AM CDT Plan of Treatment Health Maintenance Due Date Last Done Comments PAP SMEAR 1990 HIV SCREENING 2005 HEPATITIS C SCREENING 12/09/2008 DTAP/TDAP/TD VACCINES (1 - Tdap) 2009 HEPATITIS B VACCINE (1 of 3 - 19+ 3-dose series) 2009 PNEUMOCOCCAL VACCINE (1 of 2 - PCV) 2009 COVID-19 VACCINE (2023-2 5 season) 2024 INFLUENZA VACCINE (#1) 2024 , 07/22/2019, 10/28/2011 DEPRESSION SCREENING 08/08/2024 ZOSTER VACCINE (1 of 2) 2040 HIB VACCINE Aged Out No longer eligi ble based on patient's age to complete this topic HPV VACCINE Aged Out No longer eligi ble based on patient's age to complete this topic MENINGOCOCCAL (Group B) VACCINE Aged Out No longer eligible b ased on patient's age to complete this topic MENINGOCOCCAL VACCINE Aged Out No marlin leighton eligible based on patient's age to complete this topic ROXANE DEL ANGEL Personal/Family 1990 [address] [place] [address] Roxane Alvarez Personal/Family Self 1990 [address] [place] [address] Roxane Alvarez [facility] Self [address] [place] [address]
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
--- NOTE | 2024-09-04 15:56 | ED_ITS ---
HPI - General Adult General Chief complaint: Extremity Injury, Lower <Bianka Russell December, TELEPHONE SALES REPRESENTATIVE - Last Filed: 09/04/24 18:39> Stated complaint: left ankle pain after injury <Bianka Russell December, TELEPHONE SALES REPRESENTATIVE - Last Filed: 09/04/24 18:39> Time Seen by Provider: 09/04/24 15:57 <Bianka Russell December, TELEPHONE SALES REPRESENTATIVE - Last Filed: 09/04/24 18:39> Focused HPI: Vee Alvarez is a 33 y/o female with reports of breaking her left ankle 4 days ago - she is scheduled for an ORIF for tomorrow with Dr. Mcclain and was told that if she cannot take the pain threshold anymore to come in for admission before her surgery. She took a norco this AM without any relief. She has pain medications at home but she cannot manage at home anymore - she cannot walk and lives at home by herself. She states that she rolled both of her ankles and her right foot and ankle are becoming bruised too and thats the foot she is putting all of her weight on. GENERAL: Well-appearing, well-nourished, and in no acute distress. HEAD: Normocephalic, atraumatic. CHEST: Clear to auscultation. ?No respiratory distress. HEART: Regular rate and rhythm.? NEURO: ?Alert and oriented x3. Patient screened in triage and initial orders placed.? ?Additional care and disposition to be based upon?diagnostic testing and treatment. <Bianka Russell December, TELEPHONE SALES REPRESENTATIVE - Last Filed: 09/04/24 18:39> History of Present Illness HPI narrative: Agree with the HPI above <Rah Leon MD - Last Filed: 09/04/24 20:46> Related Data Home medications: Home Medications ?Medication ?Instructions ?Recorded ?Confirmed ?Last Taken ?Type citalopram 40 mg tablet 40 mg PO DAILY 09/03/24 09/04/24 Unknown History multivitamin (Daily Multi-Vitamin 1 tablet PO DAILY 09/03/24 09/04/24 Unknown History tablet) <Bianka Michaels, TELEPHONE SALES REPRESENTATIVE - Last Filed: 09/04/24 18:39> Allergies/adverse reactions: Allergies Allergy/AdvReac Type Severity Reaction Status Date / Time No Known Allergies Allergy Verified 09/04/24 14:41 <Bianka Michaels, TELEPHONE SALES REPRESENTATIVE - Last Filed: 09/04/24 18:39> Review of Systems 2 Review of Systems: As reviewed above in HPI <Rah Leon MD - Last Filed: 09/04/24 20:46> PMFSH Past Medical History Medical History: Medical History Fracture of ankle, trimalleolar, left, closed <Bianka Michaels TELEPHONE SALES REPRESENTATIVE - Last Filed: 09/04/24 18:39> Social History Social History: Social History Years smoked: 15 Smoking status: Current every day smoker Tobacco type: cigarettes Alcohol intake: current Substance use type: marijuana Other substance usage details: Edibles Living arrangements: alone Spiritual care concerns: No <Bianka Michaels, TELEPHONE SALES REPRESENTATIVE - Last Filed: 09/04/24 18:39> Exam 2 Narrative: GENERAL: [Well-appearing, well-nourished, and in no acute distress.] HEAD: [Normocephalic, atraumatic.] EYES: [PERRLA and EOMI.] ENT: Nares clear, no rhinorrhea or epistaxis. Mucous membranes moist. NECK: Supple. CHEST: [Clear to auscultation. No respiratory distress.] HEART: [Regular rate and rhythm]. No murmur heard. [Normal peripheral pulses.] ABDOMEN: [Soft, nondistended], [nontender], [No rigidity or guarding] EXTREMITIES: Left lower extremity in a posterior long mold splint, good capillary refill to distal toes, able to wiggle her toes. Right ankle also appears to have some various bruising but good range of motion, pain with palpation of the plantar surface and not able to tolerate weight-bearing. No tenderness over the ankle on the right side. SKIN: Warm, dry, no rash. NEURO: [No focal deficits]. Alert and oriented [x3.] PSYCH: [Normal mood and affect.] <Rah Leon MD - Last Filed: 09/04/24 20:46> Course Vital Signs Vital signs: Vital Signs Temperature 37.2 C 09/04/24 15:15 Pulse Rate 110 H 09/04/24 15:15 Respiratory Rate 20 09/04/24 15:15 Blood Pressure 123/73 09/04/24 15:15 Pulse Oximetry 100 09/04/24 15:15 Oxygen Delivery Room Air 09/04/24 15:15 Temperature 37.2 C 09/04/24 18:17 Pulse Rate 85 09/04/24 20:06 Respiratory Rate 16 09/04/24 20:06 Blood Pressure 142/85 H 09/04/24 20:06 Pulse Oximetry 98 09/04/24 20:06 Oxygen Delivery Room Air 09/04/24 15:15 <Bianka Michaels APRN - Last Filed: 09/04/24 18:39> Vital Signs Temperature 37.2 C 09/04/24 15:15 Pulse Rate 110 H 09/04/24 15:15 Respiratory Rate 20 09/04/24 15:15 Blood Pressure 123/73 09/04/24 15:15 Pulse Oximetry 100 09/04/24 15:15 Oxygen Delivery Room Air 09/04/24 15:15 Temperature 37.2 C 09/04/24 18:17 Pulse Rate 85 09/04/24 20:06 Respiratory Rate 16 09/04/24 20:06 Blood Pressure 142/85 H 09/04/24 20:06 Pulse Oximetry 98 09/04/24 20:06 Oxygen Delivery Room Air 09/04/24 15:15 <Rah Leon MD - Last Filed: 09/04/24 20:46> Medical Decision Making MDM Narrative Medical decision making narrative: 33-year-old female presenting for evaluation of persistent pain status post left trimalleolar fracture several days ago. Patient is scheduled for ORIF with orthopedic surgery tomorrow morning at 10:00 a.m.. Patient states that she was not able to tolerate any of her pain at home despite her [place] and other pain relieving measures. She presents tearful and expressing desire for pain control and admission. Patient sources that she lives alone, not able ambulate secondary to the splint in her left leg and trimalleolar fracture and the pain in her right ankle as also causing her difficulty walking around. Patient states that she has been crawling to get around. She is slightly tachycardic in tearful but otherwise vital signs are not concerning. No fever, hypoxia or significant blood pressure concerns. She has good capillary refill and no neurological deficits in the left lower extremity, right lower extremity is some bruising on it and x-rays were obtained of the right-sided to make sure there is no other missed fracture or occult injury. Patient was provide [place] in triage and is even 0.5 mg Dilaudid IV. Will reach out to patient's orthopedic surgeon for recommendations on admission versus plan of care given that she has a scheduled surgery tomorrow morning. Spoke to Dr. Thompson who accepted the patient to observation admission under their service for operation tomorrow morning. P.r.n. pain medications were ordered, NPO at midnight. Patient comfortable and appreciative of this plan of care. <Rah Leon MD - Last Filed: 09/04/24 20:46> Medical Records Medical records reviewed: Yes I reviewed the external patient's medical records. <Rah Leon MD - Last Filed: 09/04/24 20:46> Vital Signs Vital Signs: Vital Signs Temperature 37.2 C 09/04/24 15:15 Pulse Rate 110 H 09/04/24 15:15 Respiratory Rate 20 09/04/24 15:15 Blood Pressure 123/73 09/04/24 15:15 Pulse Oximetry 100 09/04/24 15:15 Oxygen Delivery Room Air 09/04/24 15:15 Temperature 37.2 C 09/04/24 18:17 Pulse Rate 85 09/04/24 20:06 Respiratory Rate 16 09/04/24 20:06 Blood Pressure 142/85 H 09/04/24 20:06 Pulse Oximetry 98 09/04/24 20:06 Oxygen Delivery Room Air 09/04/24 15:15 <Bianka Michaels APRN - Last Filed: 09/04/24 18:39> Vital Signs Temperature 37.2 C 09/04/24 15:15 Pulse Rate 110 H 09/04/24 15:15 Respiratory Rate 20 09/04/24 15:15 Blood Pressure 123/73 09/04/24 15:15 Pulse Oximetry 100 09/04/24 15:15 Oxygen Delivery Room Air 09/04/24 15:15 Temperature 37.2 C 09/04/24 18:17 Pulse Rate 85 09/04/24 20:06 Respiratory Rate 16 09/04/24 20:06 Blood Pressure 142/85 H 09/04/24 20:06 Pulse Oximetry 98 09/04/24 20:06 Oxygen Delivery Room Air 09/04/24 15:15 <Rah Leon MD - Last Filed: 09/04/24 20:46> Lab Data Lab results reviewed: Yes I reviewed the patient's lab results. <Rah Leon MD - Last Filed: 09/04/24 20:46> Result diagrams: 09/04/24 16:32 09/04/24 16:32 <iBanka Michaels APRN - Last Filed: 09/04/24 18:39> Labs: Lab Results 09/04/24 Range/Units 16:32 WBC 14.6 H (4.5-10.0) K/mm3 RBC 4.28 (4.2-5.4) M/mm3 Hgb 12.4 (12.0-15.0) g/dL Hct 37.1 (37.0-47.0) % MCV 86.7 (80-100) fl MCH 29.0 (26-34) pg MCHC 33.4 (32-36) g/dl RDW 14.2 (11.5-14.5) % Plt Count 270 (150-375) k/mm3 MPV 9.9 (7.4-10.4) fl Immature Gran % (Auto) 0.3 (0-0.5) % Neut % (Auto) 74.0 H (45.5-73.1) % Lymph % (Auto) 17.3 L (18.3-44.2) % [place] % (Auto) 7.1 (2.6-8.5) % Eos % (Auto) 0.8 (0-4.4) % Baso % (Auto) 0.5 (0.2-1.2) % Lymph # (Auto) 2.51 (0.9-3.2) K/mm3 [place] # (Auto) 1.0 H (0.1-0.6) K/mm3 Eos # (Auto) 0.1 (0-0.3) K/mm3 Baso # (Auto) 0.1 (0.0-0.1) K/mm3 Abs Immat Gran (auto) 0.04 H (0.00-0.031) K/mm3 Absolute Neuts (auto) 10.8 H (1.3-6.7) K/mm3 Absolute Nucleated RBC 0.000 (0.0-0.012) K/mm3 Nucleated RBC % 0.0 (0.0-0.2) % Sodium 137 (137-145) mmol/L Potassium 3.6 (3.4-5.0) mmol/L Chloride 105 (98-107) mmol/L Carbon Dioxide 21 L (22-30) mmol/L Anion Gap 11 (4-12) mmol/L BUN 9 (7-17) mg/dL Creatinine 0.54 L (0.7-1.0) mg/dL Estim Creat Clear Calc 123 ml/min Estimated GFR > 60 (59 - ) Glucose 124 H (65-110) mg/dL Calcium 9.3 (8.4-10.2) mg/dL Total Bilirubin 0.6 (0.2-1.3) mg/dL AST 22 (14-36) U/L ALT 26 (6-35) U/L Alkaline Phosphatase 80 (38-126) U/L Total Protein 7.0 (6.3-8.2) g/dL Albumin 4.0 (3.5-5.1) g/dL <Bianka Michaels, TELEPHONE SALES REPRESENTATIVE - Last Filed: 09/04/24 18:39> Lab Results 09/04/24 Range/Units 16:32 WBC 14.6 H (4.5-10.0) K/mm3 RBC 4.28 (4.2-5.4) M/mm3 Hgb 12.4 (12.0-15.0) g/dL Hct 37.1 (37.0-47.0) % MCV 86.7 (80-100) fl MCH 29.0 (26-34) pg MCHC 33.4 (32-36) g/dl RDW 14.2 (11.5-14.5) % Plt Count 270 (150-375) k/mm3 MPV 9.9 (7.4-10.4) fl Immature Gran % (Auto) 0.3 (0-0.5) % Neut % (Auto) 74.0 H (45.5-73.1) % Lymph % (Auto) 17.3 L (18.3-44.2) % [place] % (Auto) 7.1 (2.6-8.5) % Eos % (Auto) 0.8 (0-4.4) % Baso % (Auto) 0.5 (0.2-1.2) % Lymph # (Auto) 2.51 (0.9-3.2) K/mm3 [place] # (Auto) 1.0 H (0.1-0.6) K/mm3 Eos # (Auto) 0.1 (0-0.3) K/mm3 Baso # (Auto) 0.1 (0.0-0.1) K/mm3 Abs Immat Gran (auto) 0.04 H (0.00-0.031) K/mm3 Absolute Neuts (auto) 10.8 H (1.3-6.7) K/mm3 Absolute Nucleated RBC 0.000 (0.0-0.012) K/mm3 Nucleated RBC % 0.0 (0.0-0.2) % Sodium 137 (137-145) mmol/L Potassium 3.6 (3.4-5.0) mmol/L Chloride 105 (98-107) mmol/L Carbon Dioxide 21 L (22-30) mmol/L Anion Gap 11 (4-12) mmol/L BUN 9 (7-17) mg/dL Creatinine 0.54 L (0.7-1.0) mg/dL Estim Creat Clear Calc 123 ml/min Estimated GFR > 60 (59 - ) Glucose 124 H (65-110) mg/dL Calcium 9.3 (8.4-10.2) mg/dL Total Bilirubin 0.6 (0.2-1.3) mg/dL AST 22 (14-36) U/L ALT 26 (6-35) U/L Alkaline Phosphatase 80 (38-126) U/L Total Protein 7.0 (6.3-8.2) g/dL Albumin 4.0 (3.5-5.1) g/dL <Rah Leon MD - Last Filed: 09/04/24 20:46> Imaging Data Attestation: I personally reviewed and interpreted this imaging study as follows: < Rah Leon MD - Last Filed: 09/04/24 20:46> My impression: Impressions Ankle X-Ray 09/04/24 16:41 IMPRESSION: 1. No fracture. Foot X-Ray 09/04/24 16:42 IMPRESSION: 1. Normal right foot. <Rah Leon MD - Last Filed: 09/04/24 20:46> Discharge Plan Discharge Clinical Impression: Intractable pain Fracture of ankle, trimalleolar, left, closed Qualifiers: Encounter type: initial encounter Qualified Code(s): S82.852A - Displaced trimalleolar fracture of left lower leg, initial encounter for closed fracture <Bianka Michaels TELEPHONE SALES REPRESENTATIVE - Last Filed: 09/04/24 18:39> Patient Disposition: Still a Patient <Bianka Michaels TELEPHONE SALES REPRESENTATIVE - Last Filed: 09/04/24 18:39> Condition: Stable <Bianka Russell December TELEPHONE SALES REPRESENTATIVE - Last Filed: 09/04/24 18:39> Patient Language: Malian <Bianka Russell December, TELEPHONE SALES REPRESENTATIVE - Last Filed: 09/04/24 18:39> Prescriptions: No Action hydrocodone-acetaminophen 5-325 mg tablet 1 tablet PO Q8H PRN (Reason: pain) Qty: 20 0RF citalopram 40 mg tablet 40 mg PO DAILY multivitamin [Daily Multi-Vitamin] Tablet 1 tablet PO DAILY <Bianka Russell December TELEPHONE SALES REPRESENTATIVE - Last Filed: 09/04/24 18:39> Follow-up/Referrals: Wyatt,Kavon Young MD [Primary Care Provider] - <Bianka Michaels APRN - Last Filed: 09/04/24 18:39> Time of Disposition: 20:46 <Bianka Michaels TELEPHONE SALES REPRESENTATIVE - Last Filed: 09/04/24 18:39> 20:46 <Rah Leon MD - Last Filed: 09/04/24 20:46>
[2024-09-04 16:40] LABS: Basophils Absolute Auto 0.1 K/mm3 (0.0-0.1); Basophils Percent Auto 0.5 % (0.2-1.2); Eosinophils Absolute Auto 0.1 K/mm3 (0-0.3); Eosinophils Percent Auto 0.8 % (0-4.4); Hematocrit 37.1 % (37.0-47.0); Hemoglobin 12.4 g/dL (12.0-15.0); Immature Granulocyte Absolute 0.04 K/mm3 (0.00-0.031); Immature Granulocyte Percent A 0.3 % (0-0.5); Lymphocytes Absolute Auto 2.51 K/mm3 (0.9-3.2); Lymphocytes Percent Auto 17.3 % (18.3-44.2); Mean Corpuscular HGB Conc 33.4 g/dl (32-36); Mean Corpuscular Volume 86.7 fl (80-100); Mean Platelet Volume 9.9 fl (7.4-10.4); Monocytes Percent Auto 7.1 % (2.6-8.5); Neutrophils Absolute Auto 10.8 K/mm3 (1.3-6.7); Platelet Count Result 270 k/mm3 (150-375); Red Blood Count 4.28 M/mm3 (4.2-5.4); Red Cell Distribution Width 14.2 % (11.5-14.5); White Blood Count 14.6 K/mm3 (4.5-10.0)
[2024-09-04 16:49] LABS: Alanine Aminotransferase 26 U/L (6-35); Alkaline Phosphatase 80 U/L (38-126); Anion Gap 11 mmol/L (4-12); Aspartate Amino Transferase 22 U/L (14-36); Bilirubin,Total 0.6 mg/dL (0.2-1.3); Blood Urea Nitrogen 9 mg/dL (7-17); Calcium 9.3 mg/dL (8.4-10.2); Carbon Dioxide 21 mmol/L (22-30); Chloride 105 mmol/L (98-107); Estimated CRCL calculation 123 ml/min; Estimated Glomerular Filt Rate > 60; Glucose 124 mg/dL (65-110); Potassium 3.6 mmol/L (3.4-5.0); Sodium 137 mmol/L (137-145)
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
--- OUTSIDE RECORDS SUMMARY | 2024-09-04 17:13 | XMS_ITS | Patient Health Summary ---
Author Organization [facility] [employer] Address [address] [place] [address] Care Team Providers Care Turnstile Collector Name Role Phone Unavailable Primary Care Provider Unavailabl e Note from [facility],non-owned Affiliates and Associated Physician Practices is amultiple site organization consisting of ambulatory clinics and hospital sitesin [place], [place], [place]. This disclosure is being madepursuant to the Care Everywhere program and may not contain all information available regarding this patient. Last updated 18.[facility] [employer] Allergies No known active allergies Medications * Be aware that medications may not be up to date on this document. Alwaysverify current medications with the patient. 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 Test Urine negative [facility] Urine specimen (specimen) 01/27/2013 12:27 PM CDT Ronny Casper MD LAB - POINT OF CARE ORDERABLES Performing Organization Address [facility] Co de Phone Number [facility] * HCG BLOOD QUALITATIVE (01/27/2013 12:27 PM CDT) NEGATIVE NEGATIVE [facility] Comment:PERFORMED BY: LORE VELÁZQUEZ 01/27/2013 12:2 7 PM CDT 01/27/2013 12:30 PM CDT Ronny Casper MD LAB - CHEMISTRY BUNNY MELENDEZ [facility] [address] [place] [address] * SODIUM BLOOD (01/25/2013 7:30 AM CDT) Only the most recent of6 resultswithin the time period is included. Sodium 140 136 - 145 mmol/L [facility] Serum 01/25/2013 7:30 AM CDT 01/25/2013 7:43 AM CDT Price Macario MD LAB - CHEMISTRY ORD ERABLES [facility] [address] [phone] * (ABNORMAL) CBC W AUTO DIFFERENTIAL (01/24/2013 11:52 AM CDT) Only the most recent of4 resultswithin the time period is included. WBC 11.2(H) 3.5 - 10.5 10^3/uL [facility] Comment:ALL CBC PARAMETERS H AVE BEEN CHECKED. RBC 3.72(L) 3.90 - 5.00 10^6/uL [facility] Hemoglobin 11.5(L) 12.0 - 15.5 g/dL [facility] Hematocrit 34.4(L) 35.0 - 45.0 % [facility] MCV 92.5 81.0 - 97.0 FL [facility] MCH 30.9 28.0 - 34.0 PG [facility] MCHC 33.4 32.0 - 36.0 G/DL [facility] Platelet 187 150 - 400 10^3/uL [facility] RDW 13.2 11.2 - 14.8 % [facility] RDW-SD 44.6 36 - 50 FL [facility] MPV 10.4 9.3 - 12.8 FL [facility] Neutrophils % 59.8 35.0 - 70.0 % [facility] Lymphocytes % 27.1 19.7 - 55.1 % [facility] Monocytes % 12.0 3 - 15 % [facility] Eosinophils % 0.7 0.0 - 6.0 % [facility] Basophils % 0.4 0.0 - 1.5 % [facility] Neutrophils Absolute 6.7 1.7 - 7.0 10^3/uL [facility] Lymphocyte Absolute 3.0(H) 0.8 - 2.9 10^3/uL [facility] Monocytes Absolute 1.4(H) 0.14 - 0.66 10^3/uL [facility] Eosinophils Absolute 0.08 0.00 - 0.22 10^3/uL [facility] Basophils Absolute 0.05 0.02 - 0.06 10^3/uL [facility] Differential Type AUTO DIFFERENTIAL [facility] 01/24/2013 11:5 2 AM CDT 01/24/2013 12:15 PM CDT Price Macario MD LAB - HEMATOLOGY OR DERABLES [facility] [address] [place] [address] * (ABNORMAL) COMPREHENSIVE METABOLIC PANEL (01/24/2013 11:52 AM CDT) Only the most recent of2 resultswithin the time period is included. BUN 5(L) 7 - 26 mg/dL [facility] Creatinine 0.5(L) 0.6 - 1.2 mg/dL [facility] eGFR by MDRD > 60 ML/MIN [facility] Comment: Chronic kidney disease: ??<60 ml/min Kidney failure: ?<15 ml/min Based on BSA of 1.73m2. Sodium 140 136 - 145 mmol/L [facility] Potassium 3.4(L) 3.5 - 4.5 mmol/L [facility] Chloride 105 98 - 107 mmol/L [facility] CO2 25 22 - 29 mmol/L [facility] Glucose 88 70 - 115 mg/dL [facility] Calcium 9.1 8.4 - 10.2 mg/dL [facility] Protein Total 6.5 6.0 - 8.3 g/dL [facility] Albumin 3.3(L) 3.4 - 5.0 g/dL [facility] Bilirubin Total 0.7 0.2 - 1.2 mg/dL [facility] Alkaline Phosphatase 56 40 - 150 Units/L [facility] ALT 13 0 - 55 Units/L [facility] AST 14 5 - 34 Units/L [facility] Anion Gap 13 8 - 18 [facility] BUN/Creatinine Ratio 10 7 - 23 [facility] Osmolality Calculation 270 270 - 300 mOsm/kg [facility] Albumin/Globulin Ratio 1.0(L) 1.1 - 2.3 [facility] 01/24/2013 11:5 2 AM CDT 01/24/2013 12:15 PM CDT Price Macario MD LAB - CHEMISTRY ORD ERABLES [address] [phone] * (ABNORMAL) PHOSPHORUS BLOOD (01/24/2013 11:52 AM CDT) Only the most recent of2 resultswithin the time period is included. Phosphorus 2.2(L) 2.3 - 4.7 mg/dL [facility] 01/24/2013 11:5 2 AM CDT 01/24/2013 12:15 PM CDT Price Macario MD LAB - CHEMISTRY ORD ERABLES Performing Organization Address City/[facility]/ZIP Co de Phone Number [address] [phone] * MAGNESIUM BLOOD (01/24/2013 11:52 AM CDT) Only the most recent of2 resultswithin the time period is included. Magnesium 2.0 1.6 - 2.6 mg/dL [facility] 01/24/2013 11:5 2 AM CDT 01/24/2013 12:15 PM CDT Price Macario MD LAB - CHEMISTRY ORD ERABLES [address] [phone] * OSMOLALITY BLOOD (01/23/2013 12:00 PM CDT) Only the most recent of5 resultswithin the time period is included. Osmolality 292 270 - 300 MOSM/KG [facility] Venous blood specimen (specimen) 01/23/2013 12:00 PM CDT 01/23/2013 1:42 PM CDT Ronny Alvarado MD LAB - CHEMISTRY BUNNY MELENDEZ Performing Organization Address [facility] Co de Phone Number [address] [phone] * (ABNORMAL) BASIC METABOLIC PANEL (CALCIUM TOTAL) (01/23/2013 12:00 PM CDT) Only the most recent of3 resultswithin the time period is included. BUN 7 7 - 26 mg/dL [facility] Creatinine 0.4(L) 0.6 - 1.2 mg/dL [facility] eGFR by MDRD > 60 ML/MIN [facility] Comment: Chronic kidney disease: ??<60 ml/min Kidney failure: ?<15 ml/min Based on BSA of 1.73m2. Sodium 141 136 - 145 mmol/L [facility] Potassium 3.7 3.5 - 4.5 mmol/L [facility] Chloride 109(H) 98 - 107 mmol/L [facility] CO2 22 22 - 29 mmol/L [facility] Glucose 126(H) 70 - 115 mg/dL [facility] Calcium 8.9 8.4 - 10.2 mg/dL [facility] Anion Gap 14 8 - 18 [facility] BUN/Creatinine Ratio 17 7 - 23 [facility] Osmolality Calculation 276 270 - 300 mOsm/kg [facility] Venous blood specimen (specimen) 01/23/2013 12:00 PM CDT 01/23/2013 1:42 PM CDT Ronny Alvarado MD LAB - CHEMISTRY BUNNY MELENDEZ Performing Organization Address [facility]/ZIP Co de Phone Number [address] [phone] * PREPARE PLATELET PHERESIS UNIT(S) (01/22/2013 11:30 AM CDT) [facility] Blood Product [id number] ? A- ?SDP-WBCD ? TRANSFUSED ? 01/22/13 1214 ?? [id number] ? O+ ?SDP-WBCD ? TRANSFUSED ? 01/22/13 1214 ?? [facility] 01/22/2013 11:3 0 AM CDT 01/22/2013 11:30 AM CDT Bright Noland MD LAB - BLOOD BANK ORDERABLES Performing Organization Address City/State/[facility] Co de Phone Number [address] [phone] * (ABNORMAL) TEG PLATELET MAPPING (01/22/2013 7:20 AM CDT) [facility] React-Time 4.7(L) 5 - 10 MIN [facility] K-Time 1.4 1 - 3 MIN [facility] Angle A 68.8 53 - 72 Degrees [facility] MA (CK) 65.9 50 - 70 mm [facility] LY30 1.3 0 - 8 % [facility] G-Clot Strength 9.6 4.5 - 11.0 d/sc [facility] CI-Coagulation Index 1.9 -3.0 to 3.0 [facility] MA ADP 5.1 mm [facility] Comment:REFERENCE RANGE: NON E % ADP Inhibition 99.7 % [facility] Comment:REFERENCE RANGE: NON E MA AA 57.9 mm [facility] Comment:REFERENCE RANGE: NON E % AA Inhibition 13.1 % [facility] Comment:REFERENCE RANGE: NON E Interpretation TEG SEE BELOW [facility] Comment: ?? TEG KAOLIN SAMPLE TYPE INTERPRETATION [...] MD LAB - BLOOD BANK OR DERABLES [address] [phone] * PATHOLOGY INTERPRETATION (01/22/2013 7:20 AM CDT) Interpretation [facility] Comment: PATHOLOGIST INTERPRETATION: DATE: ??01-22-2013 The platelet [...] Macario MD LAB - PATHOLOGY/CYT OLOGY ORDERABLES [facility] [address] [place] [address] * CT CHEST ABDOMEN PELVIS W CONT [...] sphenoid sinus (best seen on series 3, [id number]) with resultant hemorrhage in the sphenoid sinuses. [...] CDT) APTT 29.9 23.0 - 38.4 SECONDS [facility] Comment: SUGGESTED THERAPEUTIC RANGE FOR FULL DOSE I.V. HEPARIN THERAPY FOR VENOUS THROMBOEMBOLISM IS 66.0 - 91.0 SECONDS, WITH AN APTT RATIO OF 2.1 - 3.0. APTT Ratio 0.98 [facility] Plasma specimen (specimen) 01/22/2013 4:03 AM CDT 01/22/2013 4:08 AM CDT Narrative [facility] - 01/22/2013 4:29 AM CDT Is patient on Heparin, Argatroban or Dabigatran?->N IS PATIENT ON HEPARIN? (Y OR N) N Historical Provider LAB - COAGULATION ORDERABLES [facility] [address] [place] [address] * PT-INR U (01/22/2013 4:03 AM CDT) PT 14.5 12.1 - 14.8 SECONDS [facility] INR 1.1 [facility] Comment: SUGGESTED THERAPEUTIC RANGE FOR LOW-INTENSITY COUMADIN THERAPY FOR VENOUS THROMBOEMBOLISM IS INR 2.0-3.0. ??FOR HIGH RISK PATIENTS (MITRAL VALVE PROSTHESIS, ATRIAL FIBRILLATION, HISTORY OF TIA/STROKE), SUGGESTED THERAPEUTIC RANGE IS INR 2.5-3.5. Plasma specimen (specimen) 01/22/2013 4:03 AM CDT 01/22/2013 4:08 AM CDT Narrative [facility] - 01/22/2013 4:29 AM CDT Is patient on Heparin, Argatroban or Dabigatran?->N IS PATIENT ON HEPARIN? (Y OR N) N Historical Provider LAB - COAGULATION ORDERABLES [address] [phone] * DRUG ABUSE PANEL 10-20+ETHANOL URINE NO CONFIRM (01/22/2013 4:03 AM CDT) [facility] Amphetamines NEGATIVE NEGATIVE [facility] Comment:Positive Cutoff: >=1 000 ng/mL Barbiturate NEGATIVE NEGATIVE [facility] Comment:Positive Cutoff: >=2 00 ng/mL Benzodiazepine Screen Urine NEGATIVE NEGATIVE [facility] Comment:Positive Cutoff: >=2 00 ng/mL Opiates NEGATIVE NEGATIVE [facility] Comment:Positive Cutoff: >=3 00 ng/mL Cocaine Metabolite Urine NEGATIVE NEGATIVE [facility] Comment:Positive Cutoff: >=3 00 ng/mL Phencyclidine Screen Urine NEGATIVE NEGATIVE [facility] Comment:Positive Cutoff: >=2 5 ng/mL Cannabinoids Screen Urine NEGATIVE NEGATIVE [facility] Comment:Positive Cutoff: >=5 0 ng/mL Methadone NEGATIVE NEGATIVE [facility] Comment:Positive Cutoff: >=3 00 ng/mL Note SEE NOTE [facility] Comment: Positive results should be confirmed by another generally accepted non-immunological method such as gas chromatography or mass spectrometry. Toxicology testing by the [facility] is an aid to medical diagnosis and treatment of patients. No documented chain of custody was maintained. Results are intended to be used for clinical purposes only. Note SEE NOTE [facility] Comment: The UTOX Panel does not screen for Propoxyphene, Meprobamate, Carisoprodol, Trazodone, [id number]-[id number] medications and/or volatiles (Acetone, Isopropanol, Methanol, Ethylene Glycol). Ethanol, Salicylate, Acetaminophen, Tricyclic Antidepressants and several therapeutic drugs may be individually assayed in a serum specimen. Urine specimen (specimen) URINE SPECIMEN COLLECTION, CATHETERIZED / Unknown 01/22/2013 4:03 AM CDT 01/22/2013 4:08 AM CDT Historical Provider LAB - URINE CHEMI STRY ORDERABLES Performing Organization Address [facility] Co de Phone Number [address] [phone] * TYPE + SCREEN PANEL (01/22/2013 4:03 AM CDT) Interpretation ABO/Rh Patient O POS [facility] Antibody Screen NEGATIVE [facility] Venous blood specimen (specimen) 01/22/2013 4:03 AM CDT 01/22/2013 4:17 AM CDT Historical Provider LAB - BLOOD BANK ORDERABLES Performing Organization Address [facility] [place] [address], [facility] [phone] * LIPASE BLOOD (01/22/2013 4:03 AM CDT) Lipase 18 8 - 78 Units/L [facility] Serum 01/22/2013 4:03 AM CDT 01/22/2013 4:08 AM CDT Narrative [facility] - 01/22/2013 5:00 AM CDT IS PATIENT ON HEPARIN? (Y OR N) N Historical Provider LAB - CHEMISTRY O RDERABLES Performing Organization Address [facility] [place] [address], [facility] [phone] * ALCOHOL ETHYL BLOOD (01/22/2013 4:03 AM CDT) Ethanol 124 NONE DETECTED mg/dL [facility] Comment: Ethanol in the patient's blood will contribute to the osmolar gap. ??Ethanol's contribution to the osmolar gap can be estimated by dividing the concentration of ethanol in mg/dL by 4.6. . Venous blood specimen (specimen) 01/22/2013 4:03 AM CDT 01/22/2013 4:08 AM CDT Narrative [facility] - 01/22/2013 5:00 AM CDT IS PATIENT ON HEPARIN? (Y OR N) N Historical Provider LAB - CHEMISTRY O RDERABLES [address] [phone] * XR CHEST 1VW PORTABLE (01/22/2013 4:00 AM CDT) Anatomical Region Laterality Modality Chest Other Impressions 01/22/2013 9:20 AM CDT Impression: No acute pulmonary disease. Report dictated by Tad Qiu MD (global president). I, Dr. ROXANNE CARNES M.D. have [...] disease. Report dictated by Tad Qiu MD (global president). I, Dr. ROXANNE CARNES M.D. have personally reviewed and interpreted thisexamination/study. This report was electronically signed by ROXANNE CARNES M.D. on01/22/2013 9:20 AM . Historical Provider MD ROMEO Magallon ORDERABLES
--- OUTSIDE RECORDS SUMMARY | 2024-09-04 17:13 | XMS_ITS | Clinical Summary ---
Author Organization [facility] [address] [place] [address] Address [address] [place] [address] Care Team Providers Care Chemical Equipment Sales Engineer Name Role Phone Chris Anna MD Primary Care Provider [phone] Allergies No known active allergies Medications sertraline [...] (06/10/2020): Fell out of car, hospitalized at [facility]. CT at [facility] on 01/26/13 similar to initial findings: Fracture [...] out of car on 01/22/13, admitted to [facility]. Subdural and parenchymal bleed with 3-4 mm [...] on file Legal Sex Female 12:12 AM [employer] Gender Identity Not on file Sexual Orientation [...] Comments Blood Pressure 124/66 07/05/2021 4:50 PM [employer] Pulse 108 07/05/2021 4:50 PM [employer] Temperature 36.7 ??C (98 ??F) 07/05/2021 4:50 PM [employer] Respiratory Rate 16 07/05/2021 4:50 PM [employer] Oxygen Saturation 98% 07/05/2021 4:50 PM [employer] Inhaled Oxygen Concentration - - Weight 71.1 kg (156 lb 12.8 oz) 021 11:49 AM CDT Height 160 cm (5' 3 ) 01/28/2021 11:49 AM CDT Body Mass Index 27.78 01/28/2021 11:49 AM CDT Plan of Treatment Not on file Insurance [employer] [facility] [employer] HMO/PPO Address: [place] [address] Care Teams Chemical Equipment Sales Engineer Relationship Specialty Start Date End Date Chris Anna MD PCP - General Internal Medicine 04/03/21
--- OUTSIDE RECORDS SUMMARY | 2024-09-04 17:13 | XMS_ITS | Clinical Summary ---
Author Organization [facility] Address [address] [place] [address] Care Team Providers Care Drying Rack Changer Name Role Phone Unavailable Primary Care Provider Unavailabl e Source Comments [facility],non-owned Affiliates and Associated Physician Practices is amultiple site organization consisting of ambulatory clinics and hospital sitesin [place], [place], [place] and [place]. This disclosure is being madepursuant to the Care Everywhere program and may not contain all information available regarding this patient. Last updated 18.[facility] Allergies No known active allergies Medications * Be aware that medications may not be up to date on this document. Alwaysverify current medications with the patient. Medication Sig Dispensed Refills Start Date End Date Status trimethoprim-polymy louann B (POLYTRIM) 01540-1.1 UNIT/ML-% ophthalmic solution 1-2 drops in the [...] Oxygen Saturation 99% 09/06/2017 10: 56 AM ST[facility] CH[facility]NEY [facility] Inhaled Oxygen Concentration - - Weight 84.7 [...] on patient's age to complete this topic ROAXNE DEL ANGEL Personal/Family 1990 [address] [place] [address] Roxane Alvarez Personal/Family Self 1990 [address] [place] [address] Roxane Alvarez [facility] Self [address] [place] [address]
--- OUTSIDE RECORDS SUMMARY | 2024-09-04 17:13 | XMS_ITS | Referral Summary ---
Author Organization [facility] Address [address] [place] [address] Care Team Providers Care Transit Bus Operator Name Role Phone Unavailable Primary Care Provider Unavailabl e Source Comments [facility],non-owned Affiliates and Associated Physician Practices is amultiple site organization consisting of ambulatory clinics and hospital sitesin [place], [place], [place] and [place]. This disclosure is being madepursuant to the Care Everywhere program and may not contain all information available regarding this patient. Last updated 18.[facility] Allergies No known active allergies Medications * Be aware that medications may not be up to date on this document. Alwaysverify current medications with the patient. Medication Sig Dispensed Refills Start Date End Date Status trimethoprim-polymy louann B (POLYTRIM) 81966-1.1 UNIT/ML-% ophthalmic solution 1-2 drops in the [...] Oxygen Saturation 99% 09/06/2017 10: 56 AM DIGITAL ASSET SPECIALIST Inhaled Oxygen Concentration - - Weight 84.7 kg (186 lb 12.8 oz) 023 11:35 AM CDT Height 160 cm (5' 3 ) 01/31/2023 11:35 AM CDT Body Mass Index 33.09 01/31/2023 11:35 AM CDT Plan of Treatment Not on file ROXANE DEL ANGEL Personal/Family 1990 [address] [place] [address] Roxane Alvarez Personal/Family Self 1990 [address] [place] [address] Roxane Alvarez [facility] Self 1990 [address] [place] [address]
[2024-09-04] MEDS: HYDROcodone/acetaminophen (*CRX) 5-325 MG TABLET 1 TAB PO (17:33)
[2024-09-04 18:17] VITALS: BP 137/110; PULSE 104; RESP 18; TEMP 37.2; O2SAT 99
[2024-09-04 20:06] VITALS: BP 142/85; PULSE 85; RESP 16; O2SAT 98
[2024-09-04] MEDS: HYDROmorphone HCL INJ (*CRX) 1 MG/ML SYR 0.5 MG IV PUSH (20:06)
--- NOTE | 2024-09-04 20:15 | PC.NURSE ---
Pt. placed on portal monitor to measure 02 saturation d/t IV pain medication administration. Portal monitor displayed at nurses station.
--- NOTE | 2024-09-04 21:42 | PC.NURSE ---
Pt states she is still in pain and that the dilaudid did not help with her pain at all. RN notified MD Leon. No other interventions were ordered from MD at this time.
[2024-09-04 22:23] VITALS: BMI 36.1
[2024-09-04 22:28] VITALS: BP 127/69; PULSE 99; RESP 16; TEMP 36.9; O2SAT 99
--- NOTE | 2024-09-04 22:33 | ADMGEN ---
This patient, Roxane Alvarez, was admitted to 3 Med Surg Room 302-01. Patient/family oriented to hospital policies and general routines including ID bracelet, bed and alarms, visiting hours, pain management, procedures, bathroom and other care routines, personal items, smoking policy, room service/diet, and visiting hours. Information on how to activate the Rapid Response Team has been discussed. Patient/Family are encouraged to report perceived risks to care and to ask questions if they do not understand what they are told or what they should do.
[2024-09-04] MEDS: KETOROLAC 30 MG/ML VIAL (*BKC) IV PUSH (23:33)
[2024-09-04] MEDS: MORPHINE SULFATE (*CRX) 2 MG/ML INJ IV PUSH (23:34)
[2024-09-05] VITALS (13 sets, daily range): BP systolic 104–139; BP diastolic 60–81; PULSE 93–113; RESP 14–24; TEMP 35.7–37.1; O2SAT 92–99
[2024-09-05] MEDS: HYDROmorphone HCL INJ (*CRX) 1 MG/ML SYR 0.5 MG IV PUSH ×2 (01:09→08:38)
[2024-09-05] MEDS: oxyCODONE/ACETAMINOPHEN (*CRX) 5-325 MG TABLET 2 TABLET PO ×2 (09:53→20:18)
[2024-09-05] MEDS: LACTATED RINGERS 1,000 ML 30 ML IV CONT (10:38)
[2024-09-05] MEDS: KETOROLAC 15 MG/ML VIAL (*BKC) IV PUSH (11:02)
--- NOTE | 2024-09-05 11:27 | P.HP_ITS ---
H&P: HPI History of Present Illness Date/Time: 09/05/24 11:27 Chief Complaint: Left ankle fracture Narrative: 33-year-old woman who fell and sustained left ankle trimalleolar fracture with dislocation 5 days ago. Initially seen in the emergency room were closed reduction was performed. She was splinted and discharged. Plan was for operative treatment of the ankle fracture. Repeat radiographs show subluxation of the ankle mortise and read displacement. Patient increase left ankle pain unable to be controlled with oral narcotics. Unable to transfer and mobilize and as such she returned to the emergency room yesterday. Admitted for safety and care in preparation of surgery. Review of Systems Review of Systems: All systems reviewed & are unremarkable except as noted in HPI and below Constitutional: Constitutional: Reports no additional constitutional complaints Eyes: Eyes: Reports no additional eye complaints ENT: Reports system reviewed and no additional complaints, except as documented Cardiovascular: Cardiovascular: Reports no additional cardiovascular complaints Respiratory: Respiratory: Reports no additional respiratory complaints Gastrointestinal: Gastrointestinal: Reports no additional gastrointestinal complaints Musculoskeletal: Musculoskeletal: Reports no additional musculoskeletal complaints and Reports as per HPI Neurologic: Reports system reviewed and no additional complaints, except as documented [facility] Past Medical History Medical History Fracture of ankle, trimalleolar, left, closed Social History Social History Years smoked: 15 Smoking status: Current every day smoker Tobacco type: cigarettes Alcohol intake: current Substance use type: marijuana Other substance usage details: Edibles Do You Feel Safe in your Home?: Yes Lack of Transportation: No Lack of Food: Never True Current Housing: I Have Housing Concerned About Future Housing: No Difficulty Paying Gas/Electric Bills: No Difficulty Paying for Meds: No Currently Unemployed: No Education: High School Diploma/GED Difficulty w/ Childcare or Family Care: No Living arrangements: alone Spiritual care concerns: No Meds Home Medications and Allergies Home Medications ?Medication ?Instructions ?Recorded ?Confirmed ?Type hydrocodone 5 mg-acetaminophen 325 1 tablet PO Q8H PRN pain #20 tabs 08/31/24 09/04/24 Rx mg tablet citalopram 40 mg tablet 40 mg PO DAILY 09/03/24 09/04/24 History multivitamin (Daily Multi-Vitamin 1 tablet PO DAILY 09/03/24 09/04/24 History tablet) Allergies Allergy/AdvReac Type Severity Reaction Status Date / Time No Known Allergies Allergy Verified 09/04/24 14:41 Vital Signs Vital Signs - 24 hr 09/04/24 15:15 09/04/24 18:17 09/04/24 20:06 Temperature 99 F 98.9 F Pulse Rate 110 H 104 H 85 Respiratory Rate 20 18 16 Blood Pressure 123/73 137/110 H 142/85 H Pulse Oximetry 100 99 98 Oxygen Delivery Room Air 09/04/24 22:28 09/05/24 05:27 Temperature 98.5 F 97.3 F L Pulse Rate 99 99 Respiratory Rate 16 16 Blood Pressure 127/69 115/70 Pulse Oximetry 99 97 Oxygen Delivery Exam Const: General: No confusion Orientation/consciousness: No confusion HENMT: Head: normal to inspection, normocephalic and atraumatic Neck: Neck: supple and nontender Chest: Chest palpation & inspection: normal inspection of the chest Resp: Effort & Inspection: normal respiratory effort and no audible wheezes Cardio: Rate: regular rate : General: Yes deferred Skin: General skin exam: no rashes or lesions noted Neuro: General: No confusion Extrem: General: capillary refill normal Right upper extremity: normal to inspection Left upper extremity: normal to inspection Right lower extremity: normal to inspection and hip/thigh Details: normal to inspection Left lower extremity: hip/thigh Details: normal to inspection, knee Details: normal to inspection and knee ligament exam normal Details: anterior drawer test normal, valgus stress test normal, varus stress test normal and Rupali's test normal, ankle (no calf tenderness) Details: abnormal to inspection ( Obvious swelling at the ankle joint), tenderness ( lateral malleolus), swelling (moderate lateral ankle), abnormal ROM Details: pain with active ROM Details: with plantar flexion and with dorsiflexion and with range as follows ( limited secondary to injury), crepitus Details: at the lateral malleolus and other ( good capillary refill in toes, 2+ DP pulse) and foot Details: normal capillary refill, toes with normal ROM, vascular exam Details: dorsalis pedis pulse present and motor-sensory exam Psych: Affect: normal affect H&P: Results Labs Labs: Short CBC 01/28/25 Range/Units 16:32 WBC 14.6 H (4.5-10.0) K/mm3 Hgb 12.4 (12.0-15.0) g/dL Hct 37.1 (37.0-47.0) % Plt Count 270 (150-375) k/mm3 BMP 09/04/24 16:32 Sodium 137 Potassium 3.6 Chloride 105 Carbon Dioxide 21 L BUN 9 Creatinine 0.54 L Glucose 124 H Calcium 9.3 Liver Function 09/04/24 Range/Units 16:32 Total Bilirubin 0.6 (0.2-1.3) mg/dL AST 22 (14-36) U/L ALT 26 (6-35) U/L Alkaline Phosphatase 80 (38-126) U/L Albumin 4.0 (3.5-5.1) g/dL Imaging Left ankle x-ray: My impression: left ankle x-rays repeated yesterday and show lateral subluxation of the ankle mortise with trimalleolar fracture with displacement. Increased pain right foot and ankle and new radiographs done in the emergency room yesterday. These are reviewed and show no fracture or subluxation. Normal radiographs of the right ankle and foot. Assessment and Plan Assessment and plan (1) Fracture of ankle, trimalleolar, left, closed: Qualifiers: Encounter type: initial encounter Qualified Code(s): S82.852A - Displaced trimalleolar fracture of left lower leg, initial encounter for closed fracture Code(s): S82.852A - Displaced trimalleolar fracture of left lower leg, initial encounter for closed fracture Status: Acute (2) Intractable pain: Code(s): R52 - Pain, unspecified Status: Acute Assessment and Plan: Discussed nonoperative and operative treatment options with the patient. Risks and benefits of each as well as alternatives were reviewed. All of the patient's questions were answered. The risks of surgery reviewed including but not limited to: Neurovascular damage, wound complication, infection, blood clot, pulmonary embolus, stroke, myocardial infarction, and anesthetic risks up to and including . Continued pain and possible dysfunction were explained. Specific risks of the procedure including later recurrence of deformity. No guarantees were offered. If hardware used, discussed risk of failure/ breakage and possible need for removal. If complications occur, the patient understands the need for further treatment, possible further surgery. Patient verbalizes understanding and wishes to proceed. PLAN: Open reduction internal fixation left ankle fracture. Plan Patient admitted to floor from the emergency room for pain control. Patient states pain improved after Dilaudid and Percocet. Labs reviewed which are stable. Plan for surgical treatment.
--- NOTE | 2024-09-05 11:30 | WPDHPUPDATE1 ---
History and Physical Update Update Date/Time: 09/05/24 11:30 History and Physical has been reviewed, including an updated exam of the patient. There are NO changes in the patient's condition. Risks, benefits, and alternatives have been discussed and questions answered. Patient agrees to proceed with procedure.
--- NOTE | 2024-09-05 11:35 | WPDANESEPPF ---
Anes - Initial Pre Proc Eval Procedure: Operation Date: 09/05/24 13:00 Proposed Procedures p Open Reduction Internal Fixation Left Ankle Fracture - Luther Albrecht MD Date/Time: 09/05/24 11:35 Surgeon: Luther Albrecht MD Pre Op Diagnosis: left trimalleolar fracture, intractable pain Patient Data Age: 33 Gender: F Height: 1.6 m Weight: 92.6 kg Last Vital Signs Temp 36.3 C L 09/05/24 05:27 Pulse 99 09/05/24 05:27 Resp 16 09/05/24 05:27 BP 115/70 09/05/24 05:27 Pulse Ox 97 09/05/24 05:27 O2 Del Method Room Air 09/04/24 15:15 Allergies Allergy/AdvReac Type Severity Reaction Status Date / Time No Known Allergies Allergy Verified 09/04/24 14:41 Home Medications ?Medication ?Instructions ?Recorded ?Confirmed ?Type hydrocodone 5 mg-acetaminophen 325 1 tablet PO Q8H PRN pain #20 tabs 08/31/24 09/04/24 Rx mg tablet citalopram 40 mg tablet 40 mg PO DAILY 09/03/24 09/04/24 History multivitamin (Daily Multi-Vitamin 1 tablet PO DAILY 09/03/24 09/04/24 History tablet) Laboratory Tests 09/04/24 16:32 WBC 14.6 H K/mm3 (4.5-10.0) RBC 4.28 M/mm3 (4.2-5.4) Hgb 12.4 g/dL (12.0-15.0) Hct 37.1 % (37.0-47.0) MCV 86.7 fl (80-100) MCH 29.0 pg (26-34) MCHC 33.4 g/dl (32-36) RDW 14.2 % (11.5-14.5) Plt Count 270 k/mm3 (150-375) MPV 9.9 fl (7.4-10.4) Immature Gran % (Auto) 0.3 % (0-0.5) Neut % (Auto) 74.0 H % (45.5-73.1) Lymph % (Auto) 17.3 L % (18.3-44.2) [place] % (Auto) 7.1 % (2.6-8.5) Eos % (Auto) 0.8 % (0-4.4) Baso % (Auto) 0.5 % (0.2-1.2) Lymph # (Auto) 2.51 K/mm3 (0.9-3.2) [place] # (Auto) 1.0 H K/mm3 (0.1-0.6) Eos # (Auto) 0.1 K/mm3 (0-0.3) Baso # (Auto) 0.1 K/mm3 (0.0-0.1) Abs Immat Gran (auto) 0.04 H K/mm3 (0.00-0.031) Absolute Neuts (auto) 10.8 H K/mm3 (1.3-6.7) Absolute Nucleated RBC 0.000 K/mm3 (0.0-0.012) Nucleated RBC % 0.0 % (0.0-0.2) Sodium 137 mmol/L (137-145) Potassium 3.6 mmol/L (3.4-5.0) Chloride 105 mmol/L (98-107) Carbon Dioxide 21 L mmol/L (22-30) Anion Gap 11 mmol/L (4-12) BUN 9 mg/dL (7-17) Creatinine 0.54 L mg/dL (0.7-1.0) Estim Creat Clear Calc 123 ml/min Estimated GFR > 60 (59 - ) Glucose 124 H mg/dL (65-110) Calcium 9.3 mg/dL (8.4-10.2) Total Bilirubin 0.6 mg/dL (0.2-1.3) AST 22 U/L (14-36) ALT 26 U/L (6-35) Alkaline Phosphatase 80 U/L (38-126) Total Protein 7.0 g/dL (6.3-8.2) Albumin 4.0 g/dL (3.5-5.1) Patient hx anesthesia problems: none Family hx anesthesia problems: none Results Review: All pre-operative results and documents have been reviewed as part of the pre-operative evaluation. [facility] Past Medical History Medical History Fracture of ankle, trimalleolar, left, closed Social History Social History Years smoked: 15 Smoking status: Current every day smoker Tobacco type: cigarettes Alcohol intake: current Substance use type: marijuana Other substance usage details: Edibles Do You Feel Safe in your Home?: Yes Lack of Transportation: No Lack of Food: Never True Current Housing: I Have Housing Concerned About Future Housing: No Difficulty Paying Gas/Electric Bills: No Difficulty Paying for Meds: No Currently Unemployed: No Education: High School Diploma/GED Difficulty w/ Childcare or Family Care: No Living arrangements: alone Spiritual care concerns: No Anes - Eval Final PreProcedure Day of Procedure 09/05/24 11:35 Patient weight: obese Heart: regular rate and rhythm Lungs: clear to auscultation Airway: Mallampati scale class II Neurological: alert and oriented Last oral intake: >/= 8 hours ASA classification: II Emergent: no Anesthetic plan: proceed Anesthesia type and monitoring: general LMA and standard monitoring Results Review: All pre-operative results and documents have been reviewed as part of the pre-operative evaluation. Informed Consent: The patient's anesthetic plan and its attendant risks and benefits were discussed with the patient/family/POA. Questions were solicited and answers provided to the satisfaction of the patient/family/POA.
[2024-09-05] MEDS: ceFAZolin 2 GM/D5W 50 ML 2 GM/50 ML BAG IVPB (11:56)
[2024-09-05] MEDS: BUPIVACAINE/EPINEPHRINE 0.5% 30 ML VIAL INFILTRATE (12:32)
--- NOTE | 2024-09-05 13:00 | PC.NURSE ---
To OR per bed at 1035, IV saline locked. Report given to GARRISON Garzon.
[2024-09-05] MEDS: fentaNYL CITRATE INJ (*CRX) 100 MCG/2 ML VIAL 25 MCG IV PUSH ×2 (13:56→14:00)
--- NOTE | 2024-09-05 14:35 | W.PM.PROC2 ---
Procedure Note - Detailed Date of Procedure 09/05/24 Pre-op Diagnosis left trimalleolar fracture, intractable pain Post-op Diagnosis Same Procedure Performed Open reduction internal fixation left ankle trimalleolar fracture with fixation of medial and lateral malleolus. Surgeon Luther Albrecht MD [employer] occupational therapist assistants Anesthesia General Indications 33-year-old woman who fell and sustained left ankle trimalleolar fracture. Instability of the ankle mortise noted with displacement. Patient presents for operative treatment. Description of Procedure After informed consent, the operative extremity was marked in the preoperative holding area. Patient received intravenous antibiotics. Patient was then taken to the operating room and underwent general anesthesia by the anesthesia team. Positioned supine on the operating room table with a soft bump under the ipsilateral hip. A time-out was performed confirming the patient, site of the surgery, operative plan. Lower extremity then prepped and draped in the usual sterile surgical fashion using ChloraPrep skin solution. Foot and ankle exsanguinated and a thigh tourniquet inflated to 250 mmHg. Longitudinal incision made over the lateral ankle distal fibula with a 15 blade knife. Hemostasis controlled with electrocautery. Full-thickness soft tissue flaps developed and the fascia was incised in line with the skin incision. Fracture identified and cleared with a dental pick, irrigation and rongeur. Fracture reduced and held with bone-holding clamp. Image intensification confirmed reduction of the fracture and the ankle mortise. Fixation achieved with Neutralization with a lateral plate with unicortical screws distal to fracture and bicortical screws proximal to the fracture. Good alignment and stability of the fracture noted. Image intensification used to confirm reduction of the fracture and placement of the hardware. Medial side then addressed. Longitudinal incision made with a 15 blade knife over the medial malleolus fracture. Hemostasis controlled with electrocautery. Fascia incised in line with skin incision. Periosteum cleared from the medial malleolus fracture. Medial side of the joint inspected and noted to have mild amount of trauma to the chondral surface. Thorough irrigation of the ankle joint and suctioned out. Fracture reduced and provisionally pinned. Fixation achieved with 4.0 mm partially threaded cancellous screws x2 placed in cannulated screw fashion. Image intensification confirmed reduction of the fracture and placement of the hardware. Stress of the ankle mortise and performed under fluoroscopy and mild it syndesmosis instability noted. Under fluoroscopic guidance a drill hole was then placed from the fibula into the tibia and a Arthrex syndesmosis tight rope was placed in knotless technique. Stress of the ankle performed with good stability of the ankle mortise in all directions. Posterior malleolus noted to be reduced and stable. Wounds thoroughly irrigated with antibiotic solution. Fascia repaired with 00 Vicryl interrupted suture. Subcutaneous tissue repaired with 000 Monocryl interrupted suture and Skin approximated with killian. Sterile dressings applied followed by bulky dressing and splint. Patient awoken from anesthesia, extubated and taken to the recovery room in stable condition. All sponge, needle and instrument counts correct at the end of the case. Palpable dorsalis pedis pulse noted prior to dressing. Estimated Blood Loss 10 Tourniquet Time Total Tourniquet Time: 60 Drains No Packing No Pathology None sent Complications None Condition Stable Disposition PACU [facility] Billing Surgery - Charge Forward: Surgery Billing ([id number])
--- NOTE | 2024-09-05 15:40 | PC.NURSE ---
Returned from OR per bed at 1515. Report received from GARRISON Bender.
[2024-09-05] MEDS: IBUPROFEN IV 800 MG/200 ML 800 MG/200 ML BAG 400 MG IVPB ×2 (16:06→20:19)
[2024-09-05] MEDS: SENNA/DOCUSATE SODIUM TABLET 2 TAB PO (16:44)
[2024-09-05] MEDS: HYDROmorphone HCL INJ (*CRX) 1 MG/ML SYR IV PUSH (18:14)
[2024-09-05] MEDS: ASPIRIN 81 MG ENTERIC TABLET PO (20:11)
[2024-09-05] MEDS: ceFAZolin 1 GM/NS 50 ML 1 GM/50 ML BAG IVPB (20:11)
[2024-09-06 00:40] VITALS: BP 114/65; PULSE 85; RESP 16; O2SAT 99
[2024-09-06] MEDS: HYDROmorphone HCL INJ (*CRX) 1 MG/ML SYR IV PUSH (01:00)
[2024-09-06] MEDS: IBUPROFEN IV 800 MG/200 ML 800 MG/200 ML BAG 400 MG IVPB ×4 (04:24→20:12)
[2024-09-06] MEDS: ceFAZolin 1 GM/NS 50 ML 1 GM/50 ML BAG IVPB ×2 (04:24→11:59)
[2024-09-06] MEDS: oxyCODONE/ACETAMINOPHEN (*CRX) 5-325 MG TABLET 2 TABLET PO ×4 (04:25→22:15)
[2024-09-06 06:03] VITALS: BP 112/67; PULSE 78; RESP 18; TEMP 36.2; O2SAT 100
[2024-09-06] MEDS: MULTIVITAMINS THERAPEUTIC TAB (*BKC) 1 TABLET PO (08:11)
[2024-09-06] MEDS: SENNA/DOCUSATE SODIUM TABLET 2 TAB PO ×2 (08:11→16:34)
[2024-09-06] MEDS: CITALOPRAM HYDROBROMIDE 20 MG TABLET 40 MG PO (08:11)
[2024-09-06] MEDS: polyethylene glycoL 3350 17 GM POWD.PACK PO (08:12)
[2024-09-06] MEDS: ASPIRIN 81 MG ENTERIC TABLET PO ×2 (08:14→20:16)
[2024-09-06 09:31] VITALS: BP 112/68; PULSE 79; RESP 18; TEMP 36.4; O2SAT 98
--- NOTE | 2024-09-06 09:52 | PM.PNORT ---
Progress Note: A&P Assessment and Plan (1) Fracture of ankle, trimalleolar, left, closed: Qualifiers: Encounter type: subsequent encounter Fracture healing: with routine healing Qualified Code(s): S82.852D - Displaced trimalleolar fracture of left lower leg, subsequent encounter for closed fracture with routine healing <GEORGE Willett - Last Filed: 09/06/24 11:00> Code(s): S82.852A - Displaced trimalleolar fracture of left lower leg, initial encounter for closed fracture <GEORGE Willett - Last Filed: 09/06/24 11:00> Status: Acute <GEORGE Willett - Last Filed: 09/06/24 11:00> Assessment and Plan: Postoperative day 1. Operative findings and treatment reviewed with the patient. Splint in place. PT/OT with crutches, nonweightbearing left leg. Pain control. Currently requiring dilaudid. Will try to transition to oral pain control. Plan for Home when cleared and medically stable. Follow-up in orthopedic office next week. DVT prophylaxis with aspirin. <Luther Albrecht MD - Last Filed: 09/06/24 10:40> Subjective Subjective Date/Time Seen: 09/06/24 09:52 <GEORGE Willett - Last Filed: 09/06/24 11:00> Post Op day: 1 <Luther Albrecht MD - Last Filed: 09/06/24 10:40> Principal diagnosis: Left ankle fracture <Luther Albrecht MD - Last Filed: 09/06/24 10:40> Interval history: Postoperative day 1 open reduction internal fixation left ankle fracture. Pain left ankle, severe. Difficulty mobilizing. Did work with PT this morning and is up in a chair. Denies numbness or tingling. <Luther Albrecht MD - Last Filed: 09/06/24 10:40> Review of Systems Review of Systems: All systems reviewed & are unremarkable except as noted in HPI and below <GEORGE Willett - Last Filed: 09/06/24 11:00> Exam Const: General: healthy appearing; No in distress or confusion <Luther Albrecht MD - Last Filed: 09/06/24 10:40> Orientation/consciousness: patient oriented x3 and No confusion <Luther Albrecht MD - Last Filed: 09/06/24 10:40> HENMT: Head: normal to inspection, normocephalic and atraumatic <Luther Albrecht MD - Last Filed: 09/06/24 10:40> Eyes: Conjunctivae: conjunctivae normal <Luther Albrecht MD - Last Filed: 09/06/24 10:40> Sclera: sclerae normal <Luther Albrecht MD - Last Filed: 09/06/24 10:40> Resp: Effort & Inspection: normal respiratory effort and no audible wheezes <Luther Albrecht MD - Last Filed: 09/06/24 10:40> Neuro: General: patient oriented x3 and No confusion <Luther Albrecht MD - Last Filed: 09/06/24 10:40> Extrem: Other: Left leg splint in place. Toes with good capillary refill and warmth. Good sensation throughout. Able to move toes. <Luther Albrecht MD - Last Filed: 09/06/24 10:40> Psych: Affect: normal affect <MD Shruti Connell Last Filed: 09/06/24 10:40> Objective Data Vital Signs Vital Signs: Vital Signs - 24 hr 09/05/24 13:48 09/05/24 14:00 09/05/24 14:15 Temperature 36.5 C Pulse Rate 99 96 102 H Respiratory Rate 20 24 H 14 Blood Pressure 139/79 127/66 104/74 Pulse Oximetry 99 97 95 Oxygen Delivery Simple Face Mask Room Air Room Air Oxygen Flow Rate 8 09/05/24 14:30 09/05/24 14:45 09/05/24 15:00 Temperature Pulse Rate 100 100 98 Respiratory Rate 20 14 18 Blood Pressure 126/69 123/68 134/81 Pulse Oximetry 95 97 97 Oxygen Delivery Room Air Room Air Room Air Oxygen Flow Rate 09/05/24 15:15 09/05/24 15:30 09/05/24 15:55 Temperature 36.2 C L 35.7 C L Pulse Rate 93 98 Respiratory Rate 14 16 Blood Pressure 123/75 122/73 Pulse Oximetry 96 96 99 Oxygen Delivery Room Air Oxygen Flow Rate 09/05/24 16:00 09/05/24 17:00 09/05/24 20:00 Temperature 36.3 C L 36.4 C Pulse Rate 113 H 108 H Respiratory Rate 16 18 Blood Pressure 137/80 124/60 Pulse Oximetry 92 99 Oxygen Delivery Room Air Oxygen Flow Rate 09/05/24 20:16 09/06/24 00:40 09/06/24 06:03 Temperature 37.1 C 36.2 C L Pulse Rate 95 85 78 Respiratory Rate 20 16 18 Blood Pressure 122/75 114/65 112/67 Pulse Oximetry 97 99 100 Oxygen Delivery Oxygen Flow Rate 09/06/24 09:20 09/06/24 09:31 Temperature 36.4 C Pulse Rate 79 Respiratory Rate 18 Blood Pressure 112/68 Pulse Oximetry 98 Oxygen Delivery Room Air Oxygen Flow Rate <GEORGE Willett - Last Filed: 09/06/24 11:00> Intake/Output Intake/Output: Intake & Output 09/03/24 09/04/24 09/05/24 09/06/24 23:59 23:59 23:59 23:59 Intake Total 1340 850 Balance 1340 850 <GEORGE Willett - Last Filed: 09/06/24 11:00> Meds/Results Medications: Active Medications Generic Name Dose Route Start Last Admin Trade Name Freq PRN Reason Stop Dose Admin Acetaminophen 650 mg 09/04/24 20:28 Acetaminophen 325 Mg Tablet PO Q4H PRN Mild Pain (1-3) or Fever Aspirin 81 mg 09/05/24 21:00 09/06/24 08:14 Aspirin 81 Mg Enteric Tablet PO 81 mg Q12HR YONG Administration Citalopram Hydrobromide 40 mg 09/06/24 09:00 09/06/24 08:11 Citalopram Hydrobromide 20 Mg Tablet PO 40 mg DAILY YONG Administration Hydromorphone HCl 1 mg 09/05/24 15:05 09/06/24 01:00 Hydromorphone Hcl Inj (*Crx) 1 Mg/Ml Syr IV PUSH 1 mg Q3H PRN Administration Pain Rated 7-10 Ibuprofen 800 mg in 200 mls @ 400 mls/hr 09/05/24 15:05 09/06/24 08:11 Caldolor 800 Mg/200 Ml IVPB 400 mls/hr Q6H YONG Administration Cefazolin Sodium 1 gm in 50 mls @ 100 mls/hr 09/05/24 20:00 09/06/24 04:54 Ancef 1 Gm/Ns 50 Ml IVPB 09/06/24 12:29 Infused Q8H YONG Infusion Multivitamins Therapeutic 1 tablet 09/06/24 09:00 09/06/24 08:11 Multivitamins Therapeutic Tab (*Bkc) PO 1 tablet DAILY YONG Administration Ondansetron HCl 4 mg 09/04/24 20:28 Ondansetron Inj 4 Mg/2 Ml Vial IV PUSH Q4H PRN Nausea Oxycodone/Acetaminophen 1 tablet 09/04/24 22:59 Oxycodone/Acetaminophen (*Crx) 5-325 Mg Tablet PO Q6HR PRN Pain Rated 4-6 Oxycodone/Acetaminophen 2 tablet 09/04/24 22:59 09/06/24 04:25 Oxycodone/Acetaminophen (*Crx) 5-325 Mg Tablet PO 2 tablet Q6HR PRN Administration Pain Rated 7-10 Polyethylene Glycol 17 gm 09/06/24 09:00 09/06/24 08:12 Polyethylene Glycol 3350 17 Gm Powd.Pack PO 17 gm QAM YONG Administration Senna/Docusate Sodium 2 tab 09/05/24 17:00 09/06/24 08:11 Senna/Docusate Sodium Tablet PO 2 tab BID YONG Administration <GEORGE Willett - Last Filed: 09/06/24 11:00> Radiology Results: ITS Impressions Ankle X-Ray 09/04/24 16:41 IMPRESSION: 1. No fracture. Foot X-Ray 09/04/24 16:42 IMPRESSION: 1. Normal right foot. <GEORGE Willett - Last Filed: 09/06/24 11:00>
[2024-09-06 12:50] VITALS: BP 132/74; PULSE 82; RESP 16; TEMP 36.5; O2SAT 98
--- NOTE | 2024-09-06 13:22 | WPDANESPN ---
Anes - Prog Note Post-Op Date/Time: 09/06/24 13:22 Vital Signs: Last Vital Signs Temp 36.5 C 09/06/24 12:50 Pulse 82 09/06/24 12:50 Resp 16 09/06/24 12:50 BP 132/74 09/06/24 12:50 Pulse Ox 98 09/06/24 12:50 O2 Del Method Room Air 09/06/24 09:20 O2 Flow Rate 8 09/05/24 13:48 Pain Score (VAS): 3 I/O: Intake & Output 09/05/24 09/06/24 09/06/24 23:59 07:59 15:59 Intake Total 990 850 680 Balance 990 850 680 Laboratory Tests 09/04/24 16:32 09/04/24 16:32 Patient Feedback: Patient satisfied with anesthetic care.
[2024-09-06 15:20] VITALS: BP 132/71; PULSE 88; RESP 16; TEMP 36.3; O2SAT 98
[2024-09-06 22:20] VITALS: BP 117/68; PULSE 79; RESP 16; TEMP 36.4; O2SAT 98
[2024-09-07] MEDS: oxyCODONE/ACETAMINOPHEN (*CRX) 5-325 MG TABLET 2 TABLET PO (05:26)
[2024-09-07 06:00] VITALS: BP 132/93; PULSE 74; RESP 16; TEMP 36.7; O2SAT 97
[2024-09-07] MEDS: polyethylene glycoL 3350 17 GM POWD.PACK PO (08:13)
[2024-09-07] MEDS: ASPIRIN 81 MG ENTERIC TABLET PO (08:13)
[2024-09-07] MEDS: MULTIVITAMINS THERAPEUTIC TAB (*BKC) 1 TABLET PO (08:13)
[2024-09-07] MEDS: CITALOPRAM HYDROBROMIDE 20 MG TABLET 40 MG PO (08:13)
[2024-09-07] MEDS: IBUPROFEN IV 800 MG/200 ML 800 MG/200 ML BAG 400 MG IVPB (08:13)
[2024-09-07] MEDS: SENNA/DOCUSATE SODIUM TABLET 2 TAB PO (08:13)
--- NOTE | 2024-09-07 10:53 | PM.PNORT ---
Progress Note: A&P Assessment and Plan (1) Fracture of ankle, trimalleolar, left, closed: Qualifiers: Encounter type: subsequent encounter Fracture healing: with routine healing Qualified Code(s): S82.852D - Displaced trimalleolar fracture of left lower leg, subsequent encounter for closed fracture with routine healing Code(s): S82.852A - Displaced trimalleolar fracture of left lower leg, initial encounter for closed fracture Status: Acute Assessment and Plan: Postoperative day 2. Operative findings and treatment reviewed with the patient. Splint in place. PT/OT with crutches, nonweightbearing left leg. Pain control. Currently requiring dilaudid. Will try to transition to oral pain control. Plan for Home today. Follow-up in orthopedic office next week. DVT prophylaxis with aspirin. Subjective Subjective Date/Time Seen: 09/07/24 10:53 Post Op day: 2 Principal diagnosis: Left ankle fracture Interval history: Postoperative day 2 open reduction internal fixation left ankle fracture. Pain left ankle, improved. Difficulty mobilizing. Did work with PT this morning and is up in a chair. Denies numbness or tingling. Exam Const: General: healthy appearing; No in distress or confusion Orientation/consciousness: patient oriented x3 and No confusion HENMT: Head: normal to inspection, normocephalic and atraumatic Eyes: Conjunctivae: conjunctivae normal Sclera: sclerae normal Resp: Effort & Inspection: normal respiratory effort and no audible wheezes Neuro: General: patient oriented x3 and No confusion Extrem: Other: Left leg splint in place. Toes with good capillary refill and warmth. Good sensation throughout. Able to move toes. Psych: Affect: normal affect Objective Data Vital Signs Vital Signs: Vital Signs - 24 hr 09/06/24 12:50 09/06/24 15:20 09/06/24 20:00 Temperature 97.7 F 97.4 F L Pulse Rate 82 88 Respiratory Rate 16 16 Blood Pressure 132/74 132/71 Pulse Oximetry 98 98 Oxygen Delivery Room Air 09/06/24 22:20 09/07/24 06:00 Temperature 97.5 F L 98.1 F Pulse Rate 79 74 Respiratory Rate 16 16 Blood Pressure 117/68 132/93 H Pulse Oximetry 98 97 Oxygen Delivery Intake/Output Intake/Output: Intake & Output 01/28/09/05/24 09/06/24 09/07/24 23:59 23:59 23:59 23:59 Intake Total 1340 2570 980 Balance 1340 2570 980 Meds/Results Medications: Active Medications Generic Name Dose Route Start Last Admin Trade Name Freq PRN Reason Stop Dose Admin Acetaminophen 650 mg 09/04/24 20:28 Acetaminophen 325 Mg Tablet PO Q4H PRN Mild Pain (1-3) or Fever Aspirin 81 mg 09/05/24 21:00 09/07/24 08:13 Aspirin 81 Mg Enteric Tablet PO 81 mg Q12HR YONG Administration Citalopram Hydrobromide 40 mg 09/06/24 09:00 09/07/24 08:13 Citalopram Hydrobromide 20 Mg Tablet PO 40 mg DAILY YONG Administration Ibuprofen 800 mg in 200 mls @ 400 mls/hr 09/05/24 15:05 09/07/24 08:13 Caldolor 800 Mg/200 Ml IVPB 400 mls/hr Q6H YONG Administration Multivitamins Therapeutic 1 tablet 09/06/24 09:00 09/07/24 08:13 Multivitamins Therapeutic Tab (*Bkc) PO 1 tablet DAILY YONG Administration Ondansetron HCl 4 mg 09/04/24 20:28 Ondansetron Inj 4 Mg/2 Ml Vial IV PUSH Q4H PRN Nausea Oxycodone/Acetaminophen 1 tablet 09/04/24 22:59 Oxycodone/Acetaminophen (*Crx) 5-325 Mg Tablet PO Q6HR PRN Pain Rated 4-6 Oxycodone/Acetaminophen 2 tablet 09/04/24 22:59 09/07/24 05:26 Oxycodone/Acetaminophen (*Crx) 5-325 Mg Tablet PO 2 tablet Q6HR PRN Administration Pain Rated 7-10 Polyethylene Glycol 17 gm 09/06/24 09:00 09/07/24 08:13 Polyethylene Glycol 3350 17 Gm Powd.Pack PO 17 gm QAM YONG Administration Senna/Docusate Sodium 2 tab 09/05/24 17:00 09/07/24 08:13 Senna/Docusate Sodium Tablet PO 2 tab BID YONG Administration Radiology Results: ITS Impressions Ankle X-Ray 09/04/24 16:41 IMPRESSION: 1. No fracture. Foot X-Ray 09/04/24 16:42 IMPRESSION: 1. Normal right foot.
--- NOTE | 2024-09-07 10:54 | P.DS_ITS ---
DS: Admitting Diagnosis Discharge Date 09/07/2024 Admitting Diagnosis left ankle trimalleolar fracture DS: Discharge Diagnosis Discharge Diagnosis Plan splint left leg. Crutches, nonweightbearing. Edema control. Reviewed pain control. Follow-up orthopedic office next week. DS: Summary Hospital Course Reason for hospitalization: Left ankle fracture Hospital Course: admitted through emergency room for intractable pain 09/04/2024. Taken to the operating room on 09/05/2024 for ORIF left ankle. Postoperative course on the floor with pain control, diet, nonweightbearing. PT /OT for crutch training, mobilization and ambulation. Cleared for discharge. Pain controlled with oral medication. Tolerating diet. Voiding appropriately. Status at Discharge Cognitive/behavioral status at discharge: Stable Functional status at discharge: uses cane/walker Overall status at discharge: patient is progressing back to baseline Time Spent with Patient Time attestation: Total time spent providing and/or coordinating discharge services: Exam Const: General: healthy appearing; No in distress or confusion Orienta tion/consciousness: patient oriented x3 and No confusion HENMT: Head: normal to inspection, normocephalic and atraumatic Eyes: Conjunctivae: conjunctivae normal Sclera: sclerae normal Resp: Effort & Inspection: normal respiratory effort and no audible wheezes Neuro: General: patient oriented x3 and No confusion Extrem: Other: Left leg splint in place. Toes with good capillary refill and warmth. Good sensation throughout. Able to move toes. Psych: Affect: normal affect Discharge Plan Discharge Attending physician on discharge: Sheryl Olmstead Discharging Clinician: Judith Bowser Anticipated Discharge Date/Time: 09/07/24 13:00 Patient Disposition: Home, Self-Care Activity: may shower, follow weight bearing status and other - see discharge instructions Diet: as tolerated Wound Care Instructions: follow printed instructions and keep dressing dry Discharge Instructions: SHERYL OLMSTEAD M.D. [facility] [address] [facility] [address] [place] [address] POST OPERATIVE DISCHARGE INSTRUCTIONS FOOT/ANKLE SURGERY * Elevate the involved extremity on pillows. * For the first 48 hours, make sure that the foot is above the level of your heart * Carefully observe the exposed toes for evidence of swelling or discoloration. * If the dressing is uncomfortable or tight, call the Dr?s office. * Keep the dressing clean and dry. Remove dressing only as directed by doctor. Splint in place, keep clean and dry and leave in place until your follow up appointment. * If the pain medication does not provide adequate relief, please call Dr?s office. * Take other medication as prescribed. * Please call Dr?s office to confirm follow-up appointment for 1 week. * If you have any questions, please call the Dr?s office. * Diet as tolerated. * Activity:____X____Restrictions as follows: NO weight on operative leg; crutches or walker for ambulation * Do not drive for 24 hours, unless otherwise instructed. * Additional instructions: Patient Instructions: Antibiotic Form, Crutch Instructions (GEN), Splint Care (GEN) Patient Language: Romanian Stand Alone Forms: General Discharge Information, Work/School Release IP Follow-up/Referrals: Sheryl Olmstead MD [Physician] - 09/12/24 10:15 am Discharge Medications: New oxycodone-acetaminophen [Percocet] 7.5-325 mg tablet 1 tablet PO Q4H PRN (Reason: pain) Qty: 30 0RF polyethylene glycol 3350 [Miralax] 17 gram Powder In Packet 17 g PO QAM Qty: 14 2RF aspirin 81 mg Tablet,Delayed Release (Dr/Ec) 81 mg PO Q12HR Qty: 60 0RF ibuprofen 800 mg tablet 800 mg PO TID PRN (Reason: pain) Qty: 30 1RF sennosides-docusate sodium [Senokot-S] 8.6-50 mg Tablet 2 tab-cap PO BID PRN (Reason: constipation) Qty: 30 2RF Continued citalopram 40 mg tablet 40 mg PO DAILY multivitamin [Daily Multi-Vitamin] Tablet 1 tablet PO DAILY Discontinued hydrocodone-acetaminophen 5-325 mg tablet 1 tablet PO Q8H PRN (Reason: pain) Qty: 20 0RF Date of admission: 09/04/24 20:28 Primary Care Provider: Wyatt,Kavon Young Admitting Provider: Sheryl Olmstead Attending physician on admission: Sheryl Olmstead Condition: Stable Quality VTE Prophylaxis VTE prophylaxis: pharmacologic ordered ( aspirin)
[2024-09-07] MEDS: oxyCODONE/ACETAMINOPHEN (*CRX) 5-325 MG TABLET 1 TABLET PO (11:26)
== END 2024-09-07 13:05 | disposition home or self-care (01) ==
LOC: ANHED 20:46 → ANH3MEDSUR 21:44
PROVIDERS: Nurse Practitioner Family; Admitting Provider Orthopaedic Surgery; Emergency Provider Student in an Organized Health Care Education/Training Program; PCP Internal Medicine; Visit Provider Orthopaedic Surgery
PROC: (CPT 27822; principal; 2024-09-05 13:00)
DX: S82.852A Displaced trimalleolar fracture of left lower leg, initial encounter for closed fracture (principal); S93.432A Sprain of tibiofibular ligament of left ankle, initial encounter; W19.XXXA Unspecified fall, initial encounter; M25.571 Pain in right ankle and joints of right foot; F17.210 Nicotine dependence, cigarettes, uncomplicated; E66.9 Obesity, unspecified; Z68.36 Body mass index [BMI] 36.0-36.9, adult; Z74.2 Need for assistance at home and no other household member able to render care; Z79.899 Other long term (current) drug therapy
CPT/HCPCS: 27822; 27829; 36415; 73600; 73630; 80053; 85025; 96374; 96375; 96376; 97116; 97161; 97165; 97530; 97535; 99199; 99285; A9270; C1713; C1769; G0378; J0690; J1100; J1171; J1741; J1885; J2270; J2405; J2704; J3010; J7120